=== PATIENT | male | born 1990 | race Hispanic/Latino ===

== ENCOUNTER 2022-05-24 20:38 | Inpatient (IN) | payer OTHER ==
[~2022-05-24] VITALS: Ht 175.3 cm; Wt 76.9 kg
[2022-05-24] MEDS ORDERED: ONDANSETRON 4MG INJ ONE (20:46)
[2022-05-24] MEDS ORDERED: 0.9%NACL 1000ML 1,000 ML IV ONE (20:47)
[2022-05-24 20:53] LABS: BASOPHILS % (AUTO) 0.4 % (0.0-5.0); EOSINOPHILS % (AUTO) 0.1 % (0.0-8.0); HEMATOCRIT 38.9 % (36-48); LYMPHOCYTES % (AUTO) 10.8 % (21.0-51.0); MEAN CORPUSCULAR HEMOGLOBIN 33.7 pg (27.0-33.0); MEAN CORPUSCULAR HGB CONC 37.8 g/dL (32.0-36.0); MEAN CORPUSCULAR VOLUME 89.2 fL (79-99); MONOCYTES % (AUTO) 3.9 % (3.0-13.0); NEUTROPHILS % (AUTO) 84.3 % (40.0-77.0); PLATELET COUNT (AUTO) 218 K/uL (130-400); RED BLOOD CELL COUNT(AUTO) 4.36 MIL/uL (4.00-5.50); RED CELL DISTRIBUTION WIDTH 11.6 % (11.0-15.5); WHITE BLOOD COUNT (AUTO) 17.2 K/uL (4.8-10.8)
[2022-05-24 21:07] LABS: ALBUMIN 3.7 g/dL (3.5-5.0); ALCOHOL, BLOOD < 3 mg/dL (0-10); CHLORIDE 99 mmol/L (101-111); CREATININE 0.9 mg/dL (0.5-1.5); GLOMERULAR FILTR. RATE CALC 78 mL/min (>60); GLUCOSE,RANDOM 327 mg/dL (70-105); POTASSIUM 3.8 mmol/L (3.5-5.1); SODIUM SERUM 137 mmol/L (136-145); UREA NITROGEN, BLOOD 7 mg/dL (7-18)
[2022-05-24 21:16] LABS: LIPASE 1650 U/L (114-286)
[2022-05-24] MEDS ORDERED: PROMETHAZINE HCL 25 MG/ML 1ML AMPULE IM SCH (21:30)
[2022-05-24 21:43] LABS: APPEARANCE,URINE CLEAR (CLEAR); BILIRUBIN,URINE NEGATIVE (NEGATIVE); COLOR,URINE YELLOW (YELLOW); GLUCOSE, URINE (UA) >=1000 mg/dL (NEGATIVE); KETONES,URINE 15 mg/dL (NEGATIVE); LEUKOCYTE ESTERASE ,URINE NEGATIVE (NEGATIVE); NITRATE,URINE NEGATIVE (NEGATIVE); OCCULT BLOOD,URINE TRACE-INTACT (NEGATIVE); PROTEIN,URINE TRACE mg/dL (NEGATIVE); UROBILINOGEN,URINE 0.2 mg/dL (0.2-1.0)
[2022-05-24 21:55] LABS: CARBON DIOXIDE 16 mmol/L (21-32); TOTAL PROTEIN, SERUM 7.8 g/dL (6.0-8.3)
[2022-05-24 21:58] LABS: AMPHET/METH SCREEN,URINE NEGATIVE (NEGATIVE); BARBITURATE SCREEN, URINE NEGATIVE (NEGATIVE); BENZODIAZEPINES SCREEN,URINE POSITIVE (NEGATIVE); CANNABINOID SCREEN,URINE POSITIVE (NEGATIVE); COCAINE SCREEN,URINE NEGATIVE (NEGATIVE); PHENCYCLIDINE SCREEN,URINE NEGATIVE (NEGATIVE)
[2022-05-24 22:04] LABS: BACTERIA,URINE Rare /HPF (None Seen); WBC,URINE 0-1 /HPF (0-1)
[2022-05-24 22:05] LABS: SQUAMOUS EPITHELIAL CELL,UR Rare /HPF (0-2)
[2022-05-24 22:07] LABS: ALANINE AMINOTRANSFERASE 99 U/L (12-78); ASPARTATE AMINOTRANSFERASE 114 U/L (10-37)
[2022-05-24] MEDS ORDERED: 0.9%NACL 1000ML 1,000 ML IV SCH (22:30)
[2022-05-24] MEDS ORDERED: ZOSYN 3.375GM +NS 50ML IV ONE (22:30)
[2022-05-24] MEDS ORDERED: INSULIN HUMULIN R 100 UNIT/ML 3ML SQ ONE (22:30)
[2022-05-24] MEDS ORDERED: CLON2TAB11 PO (22:56)
[2022-05-24] MEDS ORDERED: ROSU20TA31 PO (22:56)
[2022-05-24] MEDS ORDERED: LACTULOSE 20 GM/30 ML UDCUP PO PRN (23:00)
[2022-05-24] MEDS ORDERED: ACETAMINOPHEN 325 MG TAB PO PRN ×2 (23:00)
[2022-05-24] MEDS: LACTATED RINGERS 1000ML 1,000 ML IV SCH (23:40)
[2022-05-25] VITALS (36 sets, daily range): BP systolic 107–155; BP diastolic 66–104
[2022-05-25] LABS: CHOLESTEROL 1305 mg/dL (<200); HDL CHOLESTEROL 124 mg/dL (29-71); LDL DIRECT 128 mg/dL (0-99); TRIGLYCERIDES 4564 mg/dL (30-200)
[2022-05-25] MEDS ORDERED: INSULIN HUMULIN R 100 UNIT/ML 3ML SQ SCH
[2022-05-25] MEDS ORDERED: MORPHINE 2 MG SYG ONE (01:00)
[2022-05-25] MEDS: MORPHINE 2 MG SYG IVP PRN ×2 (01:13→04:45)
[2022-05-25] MEDS: INSULIN REGULAR, HUMAN 3ML 100 UNIT in 0.9%NACL 100ML 99 ML IV PRN ×4 (01:46→21:25)
[2022-05-25 02:19] LABS: BASOPHILS % (AUTO) 0.3 % (0.0-5.0); EOSINOPHILS % (AUTO) 0.1 % (0.0-8.0); HEMATOCRIT 38.2 % (42-54); LYMPHOCYTES % (AUTO) 8.1 % (21.0-51.0); MEAN CORPUSCULAR HEMOGLOBIN 33.3 pg (27.0-33.0); MEAN CORPUSCULAR HGB CONC 37.4 g/dL (32.0-36.0); MEAN CORPUSCULAR VOLUME 88.8 fL (79-99); MONOCYTES % (AUTO) 5.1 % (3.0-13.0); PLATELET COUNT (AUTO) 214 K/uL (130-400); RED CELL DISTRIBUTION WIDTH 11.7 % (11.0-15.5); WHITE BLOOD COUNT (AUTO) 18.4 K/uL (4.8-10.8)
[2022-05-25 02:54] LABS: ALBUMIN 3.5 g/dL (3.5-5.0); CREATININE 0.8 mg/dL (0.5-1.5); MAGNESIUM 1.4 mg/dL (1.80-2.40); POTASSIUM 3.6 mmol/L (3.5-5.1); TOTAL PROTEIN, SERUM 7.2 g/dL (6.0-8.3)
[2022-05-25] MEDS ORDERED: MAGNESIUM 2GM PREMIX 50ML 50 ML IV SCH (04:30)
[2022-05-25] MEDS ORDERED: LORAZEPAM 2 MG/ML 1 ML VIAL IVP PRN (06:00)
[2022-05-25] MEDS ORDERED: PHARMACY COMMUNICATION MISC PRN (06:00)
[2022-05-25] MEDS: ZOSYN 3.375GM+NS 50ML 50 ML IV SCH ×3 (06:25→20:39)
[2022-05-25] MEDS: ONDANSETRON 4MG INJ IV PRN ×5 (06:31→20:38)
[2022-05-25] MEDS ORDERED: HYDROMORPHONE 1 MG INJ IVP PRN (07:30)
[2022-05-25] MEDS ORDERED: HYDROMORPHONE 0.5 MG SYG (0.5MG/0.5ML) IVP PRN (07:30)
[2022-05-25] MEDS: THIAMINE HCL 100 MG/ML 2ML VIAL IM SCH (08:32)
[2022-05-25] MEDS: FOLIC ACID 1 MG TABLET PO SCH (08:32)
[2022-05-25] MEDS: MULTIVITAMIN TABLET PO SCH (08:32)
[2022-05-25] MEDS: FAMOTIDINE 20MG VIAL IV SCH ×2 (08:32→20:38)
[2022-05-25] MEDS: ENOXAPARIN SODIUM 40 MG/0.4 ML SYRINGE SQ SCH (08:33)
[2022-05-25] MEDS: HYDROMORPHONE 0.5 MG SYG (0.5MG/0.5ML) IVP PRN ×3 (08:33→15:43)
[2022-05-25] MEDS: LACTATED RINGERS 1000ML 1,000 ML IV SCH (08:49)
[2022-05-25] MEDS ORDERED: DEXTROSE 5 %-0.45 % NACL 1,000 ML IV SCH (11:30)
[2022-05-25] MEDS: 0.9%NACL 1000ML 1,000 ML IV SCH (11:44)
[2022-05-25] MEDS: DEXTROSE 10%-WATER 1,000 ML IV SCH (11:55)
[2022-05-25] MEDS: CHLORDIAZEPOXIDE HCL 25 MG CAP PO PRN ×2 (14:05→17:20)
[2022-05-25] MEDS ORDERED: 0.9%NACL 1000ML 1,000 ML IV SCH ×2 (17:50→19:00)
[2022-05-25] MEDS: FENOFIBRATE NANOCRYSTALLIZED 145 MG TAB PO SCH (20:39)
[2022-05-25] MEDS: DIAZEPAM 5 MG/ML 2 ML SYG IVP PRN (20:40)
[2022-05-26] VITALS (40 sets, daily range): BP systolic 106–153; BP diastolic 54–108
[2022-05-26] MEDS: HYDROMORPHONE 0.5 MG SYG (0.5MG/0.5ML) IVP PRN ×2 (01:23→16:07)
[2022-05-26] MEDS: ZOSYN 3.375GM+NS 50ML 50 ML IV SCH ×3 (05:00→20:23)
[2022-05-26] MEDS: DEXTROSE 10%-WATER 1,000 ML IV SCH ×4 (05:00→23:28)
[2022-05-26 05:27] LABS: BASOPHILS % (AUTO) 0.6 % (0.0-5.0); EOSINOPHILS % (AUTO) 0.7 % (0.0-8.0); HEMATOCRIT 42.2 % (42-54); LYMPHOCYTES % (AUTO) 24.2 % (21.0-51.0); MEAN CORPUSCULAR HEMOGLOBIN 31.9 pg (27.0-33.0); MEAN CORPUSCULAR HGB CONC 35.3 g/dL (32.0-36.0); MEAN CORPUSCULAR VOLUME 90.4 fL (79-99); MONOCYTES % (AUTO) 5.3 % (3.0-13.0); NEUTROPHILS % (AUTO) 68.8 % (40.0-77.0); PLATELET COUNT (AUTO) 162 K/uL (130-400); RED BLOOD CELL COUNT(AUTO) 4.67 MIL/uL (4.50-6.20); RED CELL DISTRIBUTION WIDTH 12.4 % (11.0-15.5); WHITE BLOOD COUNT (AUTO) 9.6 K/uL (4.8-10.8)
[2022-05-26 05:43] LABS: HEMOGLOBIN A1C 9.3 % (4.0-6.0)
[2022-05-26 05:57] LABS: ALBUMIN 2.4 g/dL (3.5-5.0); CREATININE 0.9 mg/dL (0.5-1.5); POTASSIUM 3.2 mmol/L (3.5-5.1); TOTAL PROTEIN, SERUM 6.1 g/dL (6.0-8.3)
[2022-05-26] MEDS ORDERED: ALPR1TAB7 PO (07:48)
[2022-05-26] MEDS: THIAMINE HCL 100 MG/ML 2ML VIAL IM SCH (08:47)
[2022-05-26] MEDS: ENOXAPARIN SODIUM 40 MG/0.4 ML SYRINGE SQ SCH (08:47)
[2022-05-26] MEDS: FOLIC ACID 1 MG TABLET PO SCH (08:47)
[2022-05-26] MEDS: FAMOTIDINE 20MG VIAL IV SCH ×2 (08:47→20:23)
[2022-05-26] MEDS: ONDANSETRON 4MG INJ IV PRN ×2 (08:47→20:23)
[2022-05-26] MEDS: 0.9%NACL 1000ML 1,000 ML IV SCH (08:47)
[2022-05-26] MEDS: MULTIVITAMIN TABLET PO SCH (08:47)
[2022-05-26] MEDS: POTASSIUM CHLORIDE 20MEQ/100ML 100 ML IV PRN ×2 (10:00→17:46)
[2022-05-26] MEDS: LIDOCAINE HCL-MPF 1% 2ML VIAL IV PRN ×2 (10:00→17:46)
[2022-05-26] MEDS: DIAZEPAM 5 MG/ML 2 ML SYG IVP PRN ×2 (12:00→20:23)
[2022-05-26] MEDS: INSULIN REGULAR, HUMAN 3ML 100 UNIT in 0.9%NACL 100ML 99 ML IV PRN ×2 (12:08)
[2022-05-26] MEDS: FENOFIBRATE NANOCRYSTALLIZED 145 MG TAB PO SCH (20:24)
[2022-05-27] VITALS (22 sets, daily range): BP systolic 104–148; BP diastolic 59–99
[2022-05-27] MEDS: ONDANSETRON 4MG INJ IV PRN ×2 (02:25→22:38)
[2022-05-27] MEDS: HYDROMORPHONE 0.5 MG SYG (0.5MG/0.5ML) IVP PRN ×2 (02:28→03:40)
[2022-05-27] MEDS: INSULIN REGULAR, HUMAN 3ML 100 UNIT in 0.9%NACL 100ML 99 ML IV PRN ×2 (03:26)
[2022-05-27] MEDS: 0.9%NACL 1000ML 1,000 ML IV SCH ×2 (04:06→23:05)
[2022-05-27] MEDS: ZOSYN 3.375GM+NS 50ML 50 ML IV SCH ×3 (04:06→21:59)
[2022-05-27] MEDS: DEXTROSE 10%-WATER 1,000 ML IV SCH (04:10)
[2022-05-27] MEDS: MULTIVITAMIN TABLET PO SCH (08:39)
[2022-05-27] MEDS: FAMOTIDINE 20MG VIAL IV SCH ×2 (08:39→21:58)
[2022-05-27] MEDS: THIAMINE HCL 100 MG/ML 2ML VIAL IM SCH (08:39)
[2022-05-27] MEDS: FOLIC ACID 1 MG TABLET PO SCH (08:39)
[2022-05-27] MEDS: ENOXAPARIN SODIUM 40 MG/0.4 ML SYRINGE SQ SCH (08:41)
[2022-05-27 10:52] LABS: BASOPHILS % (AUTO) 0.3 % (0.0-5.0); EOSINOPHILS % (AUTO) 2.6 % (0.0-8.0); HEMATOCRIT 34.2 % (42-54); LYMPHOCYTES % (AUTO) 28.8 % (21.0-51.0); MEAN CORPUSCULAR HGB CONC 35.7 g/dL (32.0-36.0); MEAN CORPUSCULAR VOLUME 89.8 fL (79-99); MONOCYTES % (AUTO) 5.1 % (3.0-13.0); NEUTROPHILS % (AUTO) 62.8 % (40.0-77.0); PLATELET COUNT (AUTO) 159 K/uL (130-400); RED BLOOD CELL COUNT(AUTO) 3.81 MIL/uL (4.50-6.20); RED CELL DISTRIBUTION WIDTH 12.1 % (11.0-15.5); WHITE BLOOD COUNT (AUTO) 9.7 K/uL (4.8-10.8)
[2022-05-27 11:18] LABS: CREATININE 0.7 mg/dL (0.5-1.5); POTASSIUM 3.2 mmol/L (3.5-5.1)
[2022-05-27] MEDS: INSULIN HUMULIN R 100 UNIT/ML 3ML SQ SCH ×3 (11:30→22:06)
[2022-05-27] MEDS: ALPRAZOLAM 1 MG TAB PO PRN (12:20)
[2022-05-27] MEDS: POTASSIUM CHLORIDE 20MEQ/100ML 100 ML IV PRN (13:33)
[2022-05-27] MEDS ORDERED: POTASSIUM CHLORIDE 10% ELIXIR 20 MEQ/15 ML UDCUP PO PRN (18:00)
[2022-05-27] MEDS: FENOFIBRATE NANOCRYSTALLIZED 145 MG TAB PO SCH (21:58)
[2022-05-27] MEDS: CLONAZEPAM 1MG TAB PO SCH (21:58)
[2022-05-28] MEDS: CHLORDIAZEPOXIDE HCL 25 MG CAP PO PRN ×2 (02:55→05:20)
[2022-05-28] MEDS: ALPRAZOLAM 1 MG TAB PO PRN (02:55)
[2022-05-28 03:38] VITALS: BP 126/88
[2022-05-28] MEDS: ZOSYN 3.375GM+NS 50ML 50 ML IV SCH (05:17)
[2022-05-28] MEDS: KCL 20 MEQ ERTAB PO PRN ×2 (06:51→09:29)
[2022-05-28] MEDS: INSULIN HUMULIN R 100 UNIT/ML 3ML SQ SCH ×2 (06:51→13:18)
[2022-05-28 07:28] VITALS: BP 137/89
[2022-05-28] MEDS: ENOXAPARIN SODIUM 40 MG/0.4 ML SYRINGE SQ SCH (09:29)
[2022-05-28] MEDS: CLONAZEPAM 1MG TAB PO SCH (09:32)
[2022-05-28] MEDS: MULTIVITAMIN TABLET PO SCH (09:32)
[2022-05-28] MEDS: FAMOTIDINE 20MG VIAL IV SCH (09:32)
[2022-05-28 12:24] VITALS: BP 150/104
[2022-05-28] MEDS ORDERED: GLIM4TAB36 PO (12:57)
[2022-05-28] MEDS ORDERED: OMEG-148 PO (12:57)
[2022-05-28] MEDS ORDERED: METF-444 PO (12:57)
[2022-05-28] MEDS ORDERED: ROSU20TA31 PO (12:57)
[2022-05-28] MEDS ORDERED: FENO145T PO (12:57)
[2022-05-28 14:10] VITALS: BP 134/94
== END 2022-05-28 14:30 | disposition home or self-care (01) | DRG 440 ==
LOC: EDH 20:38 → EDSEX 20:38 → EDHIP 22:54 → 4AH 05-25 01:19 → EDHIP 05-25 01:25 → 2CH 05-25 05:14 → 3CH 05-27 13:54
PROVIDERS: ADMIT Internal Medicine; ATTEND Internal Medicine
DX: K85.90 Acute pancreatitis without necrosis or infection, unspecified (principal); E11.65 Type 2 diabetes mellitus with hyperglycemia; E78.1 Pure hyperglyceridemia; E78.5 Hyperlipidemia, unspecified; E83.51 Hypocalcemia; F10.20 Alcohol dependence, uncomplicated; F17.200 Nicotine dependence, unspecified, uncomplicated; F41.9 Anxiety disorder, unspecified; I10 Essential (primary) hypertension; K59.00 Constipation, unspecified; Z79.899 Other long term (current) drug therapy; Z91.14 Patient's other noncompliance with medication regimen; Z91.19 Patient's noncompliance with other medical treatment and regimen
CPT/HCPCS: 36415; 74176; 80048; 80053; 80061; 80305; 81001; 82150; 82948; 83036; 83690; 83735; 84478; 85025; 86140; G0378; J1170; J1650; J1815; J2405; J2543; J3360; J3411; J3475; J3480; J3490; J7030

== ENCOUNTER 2022-12-04 14:52 | Emergency (ER) | payer MEDICAID ==
[~2022-12-04] VITALS: Ht 172.7 cm; Wt 86.2 kg
[~2022-12-04 14:52] MED LIST: FENO145T PO; GLIM4TAB36 PO; HYDR-3421 PO; ICOS1CAP2 PO; METF-444 PO; MIRT-120 PO; OMEG-148 PO; PARO-149 PO; ROSU20TA31 PO; TRAZ-253 PO
[2022-12-04 15:50] LABS: BASOPHILS % (AUTO) 0.6 % (0.0-5.0); EOSINOPHILS % (AUTO) 0.2 % (0.0-8.0); HEMATOCRIT 41.4 % (42-54); LYMPHOCYTES % (AUTO) 22.4 % (21.0-51.0); MEAN CORPUSCULAR HEMOGLOBIN 30.6 pg (27.0-33.0); MEAN CORPUSCULAR HGB CONC 34.8 g/dL (32.0-36.0); MEAN CORPUSCULAR VOLUME 87.9 fL (79-99); NEUTROPHILS % (AUTO) 68.6 % (40.0-77.0); PLATELET COUNT (AUTO) 239 K/uL (130-400); RED BLOOD CELL COUNT(AUTO) 4.71 MIL/uL (4.50-6.20); RED CELL DISTRIBUTION WIDTH 12.3 % (11.0-15.5); WHITE BLOOD COUNT (AUTO) 12.7 K/uL (4.8-10.8)
[2022-12-04 16:04] LABS: ALBUMIN 4.7 g/dL (3.5-5.0); CREATININE 1.2 mg/dL (0.5-1.5); TOTAL PROTEIN, SERUM 8.8 g/dL (6.0-8.3)
[2022-12-04] MEDS ORDERED: KETOROLAC 15MG/ML VIAL (15MG/ML) ONE (16:47)
[2022-12-04] MEDS ORDERED: ONDANSETRON 4MG INJ ONE (16:48)
[2022-12-04] MEDS ORDERED: ONDANSETRON 4MG INJ IVP ONE (17:00)
[2022-12-04] MEDS ORDERED: 0.9%NACL 1000ML 1,000 ML IV ONE (17:00)
[2022-12-04] MEDS ORDERED: KETOROLAC 15MG/ML VIAL (15MG/ML) IV ONE (17:00)
[2022-12-04] MEDS ORDERED: KCL 20 MEQ ERTAB PO ONE ×2 (17:00→17:10)
[2022-12-04 18:12] VITALS: BP 132/93
[2022-12-04 18:17] LABS: CHOLESTEROL 299 mg/dL (<200); HDL CHOLESTEROL 51 mg/dL (29-71); LDL DIRECT 173 mg/dL (0-99); LIPASE 98 U/L (114-286); TRIGLYCERIDES 458 mg/dL (30-200)
[2022-12-04 18:41] LABS: APPEARANCE,URINE CLOUDY (CLEAR); BILIRUBIN,URINE NEGATIVE (NEGATIVE); COLOR,URINE YELLOW (YELLOW); GLUCOSE, URINE (UA) >=1000 mg/dL (NEGATIVE); KETONES,URINE 5 mg/dL (NEGATIVE); LEUKOCYTE ESTERASE ,URINE NEGATIVE Leu/uL (NEGATIVE); NITRATE,URINE NEGATIVE (NEGATIVE); OCCULT BLOOD,URINE NEGATIVE (NEGATIVE); PH,URINE 6.5 (5.0-8.0); PROTEIN,URINE 70 mg/dL (NEGATIVE); UROBILINOGEN,URINE 3 mg/dL (0.2-1.0)
[2022-12-04] MEDS ORDERED: LORAZEPAM 2 MG/ML 1 ML VIAL ONE (18:42)
[2022-12-04 18:48] LABS: MUCUS,URINE FEW LPF (None Seen); OTHER CASTS, URINE 1 /LPF (None Seen); SQUAMOUS EPITHELIAL CELL,UR RARE /HPF (0-2); YEAST,URINE BUDDING MOD /HPF (None Seen)
[2022-12-04] MEDS ORDERED: LORAZEPAM 2 MG/ML 1 ML VIAL IVP ONE (19:00)
[2022-12-04] MEDS ORDERED: ACET-2079 PO (19:00)
== END 2022-12-04 19:10 | disposition home or self-care (01) ==
LOC: EDH 14:52
DX: R10.9 Unspecified abdominal pain (principal); F10.10 Alcohol abuse, uncomplicated; E11.9 Type 2 diabetes mellitus without complications; R11.0 Nausea; F41.9 Anxiety disorder, unspecified; Z79.899 Other long term (current) drug therapy; Z79.84 Long term (current) use of oral hypoglycemic drugs
CPT/HCPCS: 99284; 96374; 96375; 96361; 80061; 80053; 83690; 85025; 81001; 36415; J7030; J2405; J2060; J1885

== ENCOUNTER 2023-02-11 18:06 | Emergency (ER) | payer MEDICAID ==
[~2023-02-11] VITALS: Ht 167.6 cm; Wt 79.4 kg
[~2023-02-11 18:06] MED LIST changes: +ACET-2079 PO
[2023-02-11 19:48] LABS: BASOPHILS % (AUTO) 0.4 % (0.0-5.0); EOSINOPHILS % (AUTO) 0.1 % (0.0-8.0); HEMATOCRIT 40.1 % (42-54); LYMPHOCYTES % (AUTO) 8.5 % (21.0-51.0); MEAN CORPUSCULAR HEMOGLOBIN 31.6 pg (27.0-33.0); MEAN CORPUSCULAR HGB CONC 35.7 g/dL (32.0-36.0); MEAN CORPUSCULAR VOLUME 88.7 fL (79-99); MONOCYTES % (AUTO) 6.1 % (3.0-13.0); NEUTROPHILS % (AUTO) 84.4 % (40.0-77.0); PLATELET COUNT (AUTO) 204 K/uL (130-400); RED BLOOD CELL COUNT(AUTO) 4.52 MIL/uL (4.50-6.20); RED CELL DISTRIBUTION WIDTH 12.1 % (11.0-15.5)
[2023-02-11 20:00] LABS: CREATININE 1.9 mg/dL (0.5-1.5); POTASSIUM 3.2 mmol/L (3.5-5.1)
[2023-02-11] MEDS ORDERED: HALOPERIDOL INJ 5 MG/ML VIAL IV SCH (20:00)
[2023-02-11] MEDS ORDERED: 0.9%NACL 1000ML 1,000 ML IV ONE (20:00)
[2023-02-11 20:05] LABS: ALBUMIN 4.2 g/dL (3.5-5.0); TOTAL PROTEIN, SERUM 8.5 g/dL (6.0-8.3)
[2023-02-11] MEDS ORDERED: 0.9%NACL 1000ML 2,500 ML IV ONE (20:30)
[2023-02-11 20:53] VITALS: BP 132/92
[2023-02-11 21:09] LABS: TRIGLYCERIDES 1276 mg/dL (30-200)
[2023-02-11 21:19] LABS: APPEARANCE,URINE CLEAR (CLEAR); BILIRUBIN,URINE NEGATIVE (NEGATIVE); COLOR,URINE LIGHT-YELLOW (YELLOW); GLUCOSE, URINE (UA) >=1000 mg/dL (NEGATIVE); KETONES,URINE 20 mg/dL (NEGATIVE); LEUKOCYTE ESTERASE ,URINE NEGATIVE Leu/uL (NEGATIVE); NITRATE,URINE NEGATIVE (NEGATIVE); OCCULT BLOOD,URINE MODERATE (NEGATIVE); PROTEIN,URINE 300 mg/dL (NEGATIVE); UROBILINOGEN,URINE 0.2 mg/dL (0.2-1.0)
[2023-02-11 21:21] LABS: BACTERIA,URINE FEW /HPF (None Seen); MUCUS,URINE RARE LPF (None Seen); OTHER CASTS, URINE 3 /LPF (None Seen); SQUAMOUS EPITHELIAL CELL,UR RARE /HPF (0-2); YEAST,URINE BUDDING FEW /HPF (None Seen)
[2023-02-11 21:25] LABS: AMPHET/METH SCREEN,URINE NEGATIVE (NEGATIVE); BARBITURATE SCREEN, URINE NEGATIVE (NEGATIVE); BENZODIAZEPINES SCREEN,URINE POSITIVE (NEGATIVE); CANNABINOID SCREEN,URINE POSITIVE (NEGATIVE); COCAINE SCREEN,URINE NEGATIVE (NEGATIVE); OPIATE SCREEN,URINE NEGATIVE (NEGATIVE); PHENCYCLIDINE SCREEN,URINE NEGATIVE (NEGATIVE)
== END 2023-02-11 22:10 | disposition home or self-care (01) ==
LOC: EDH 18:06
DX: K85.90 Acute pancreatitis without necrosis or infection, unspecified (principal); Z79.84 Long term (current) use of oral hypoglycemic drugs; Z79.899 Other long term (current) drug therapy; Z98.890 Other specified postprocedural states
CPT/HCPCS: 99285; 74176; 96374; 96361; 84478; 80053; 80305; 83690; 85025; 36415; 81001; J7030; J1630

== ENCOUNTER 2023-04-21 19:04 | Inpatient (IN) | payer MEDICAID ==
[~2023-04-21] VITALS: Ht 175.3 cm; Wt 89.4 kg
[~2023-04-21 19:04] MED LIST changes: -ROSU20TA31 PO; +ROSU20TA73 PO
[2023-04-21] MEDS ORDERED: 0.9%NACL 1000ML 1,000 ML IV SCH (19:30)
[2023-04-21] MEDS ORDERED: ONDANSETRON 4MG INJ IVP ONE (19:30)
[2023-04-21] MEDS ORDERED: DICYCLOMINE 20MG (10MG/ML) AMP IM STA (19:32)
[2023-04-21 20:00] LABS: BASOPHILS % (AUTO) 0.2 % (0.0-5.0); HEMATOCRIT 42.5 % (42-54); LYMPHOCYTES % (AUTO) 11.2 % (21.0-51.0); MEAN CORPUSCULAR HGB CONC 36.2 g/dL (32.0-36.0); MEAN CORPUSCULAR VOLUME 88.4 fL (79-99); MONOCYTES % (AUTO) 4.1 % (3.0-13.0); NEUTROPHILS % (AUTO) 84.2 % (40.0-77.0); PLATELET COUNT (AUTO) 216 K/uL (130-400); RED BLOOD CELL COUNT(AUTO) 4.81 MIL/uL (4.50-6.20); RED CELL DISTRIBUTION WIDTH 11.6 % (11.0-15.5); WHITE BLOOD COUNT (AUTO) 17.3 K/uL (4.8-10.8)
[2023-04-21 20:16] LABS: CARBON DIOXIDE 19 mmol/L (21-32); CHLORIDE 96 mmol/L (101-111); CREATININE 1.1 mg/dL (0.5-1.5); GLOMERULAR FILTR. RATE CALC 93 mL/min (>90); GLUCOSE,RANDOM 324 mg/dL (70-105); POTASSIUM 3.6 mmol/L (3.5-5.1); SODIUM SERUM 138 mmol/L (136-145); UREA NITROGEN, BLOOD 10 mg/dL (7-18)
[2023-04-21] MEDS: HALOPERIDOL INJ 5 MG/ML VIAL IM SCH (20:20)
[2023-04-21 20:37] LABS: B-TYPE NATRIURETIC PEPTIDE < 5 pg/mL (0-100)
[2023-04-21 20:46] LABS: ALBUMIN 3.7 g/dL (3.5-5.0); CREATINE KINASE, TOTAL 62 U/L (21-232); MYOGLOBIN 13 ng/mL (10-92); TOTAL PROTEIN, SERUM 7.7 g/dL (6.0-8.3)
[2023-04-21 21:13] LABS: APPEARANCE,URINE CLEAR (CLEAR); BILIRUBIN,URINE NEGATIVE (NEGATIVE); COLOR,URINE LIGHT-YELLOW (YELLOW); GLUCOSE, URINE (UA) >=1000 mg/dL (NEGATIVE); KETONES,URINE 20 mg/dL (NEGATIVE); LEUKOCYTE ESTERASE ,URINE NEGATIVE Leu/uL (NEGATIVE); NITRATE,URINE NEGATIVE (NEGATIVE); OCCULT BLOOD,URINE NEGATIVE (NEGATIVE); PROTEIN,URINE 20 mg/dL (NEGATIVE); UROBILINOGEN,URINE 0.2 mg/dL (0.2-1.0)
[2023-04-21 21:16] LABS: RBC,URINE 0-1 /HPF (0-1); SQUAMOUS EPITHELIAL CELL,UR RARE /HPF (0-2); WBC,URINE 0-1 /HPF (0-1)
[2023-04-21 21:27] LABS: ALANINE AMINOTRANSFERASE 205 U/L (12-78); ASPARTATE AMINOTRANSFERASE 201 U/L (10-37)
[2023-04-21] MEDS ORDERED: IOHEXOL-350 75 ML VIAL IV ONE (21:56)
[2023-04-21] MEDS ORDERED: MAG-55 PO (22:28)
[2023-04-21] MEDS ORDERED: FAMO-136 PO (22:28)
[2023-04-21] MEDS ORDERED: HYDROMORPHONE 1 MG INJ ONE (23:05)
[2023-04-21] MEDS ORDERED: HYDROMORPHONE 1 MG INJ IVP ONE (23:30)
[2023-04-21] MEDS ORDERED: INSULIN REGULAR, HUMAN 3ML 100 UNIT in 0.9%NACL 100ML 99 ML IV SCH ×2 (23:45)
[2023-04-22] VITALS (24 sets, daily range): BP systolic 94–143; BP diastolic 51–98; PULSE 113–165; RESP 13–86; O2SAT 95–96
[2023-04-22] MEDS ORDERED: LACTATED RINGERS 1000ML 1,000 ML IV SCH
[2023-04-22] MEDS ORDERED: D5W-1/2 NS/20MEQ KCL 1,000 ML IV SCH
[2023-04-22] MEDS ORDERED: ACETAMINOPHEN 325 MG TAB PO PRN ×2
[2023-04-22] MEDS ORDERED: INSULIN HUMULIN R 100 UNIT/ML 3ML ONE (00:02)
[2023-04-22 00:11] LABS: CREATININE 0.9 mg/dL (0.5-1.5)
[2023-04-22] MEDS: MAGNESIUM 2GM PREMIX 50ML 50 ML IV SCH (00:19)
[2023-04-22] MEDS: POTASSIUM CHLORIDE 10MEQ/100ML 100 ML IV PRN ×5 (00:20→21:57)
[2023-04-22] MEDS ORDERED: PHARMACY COMMUNICATION MISC PRN (00:30)
[2023-04-22] MEDS: MORPHINE 4 MG SYG IV PRN ×3 (02:01→21:56)
[2023-04-22] MEDS: ONDANSETRON 4MG INJ IV PRN ×3 (02:01→17:03)
[2023-04-22] MEDS ORDERED: [UNRECOGNIZED DRUG - OTHER] IV SCH ×2 (02:30)
[2023-04-22] MEDS ORDERED: HUMAN IV SCH ×2 (02:30)
[2023-04-22] MEDS ORDERED: INSULIN REGULAR IV SCH ×2 (02:30)
[2023-04-22] MEDS ORDERED: PHARMACY COMMUNICATION MISC SCH ×2 (03:00)
[2023-04-22] MEDS: LORAZEPAM 2 MG/ML 1 ML VIAL IVP PRN ×3 (03:10→19:42)
[2023-04-22 05:26] LABS: BASOPHILS % (AUTO) 0.4 % (0.0-5.0); EOSINOPHILS % (AUTO) 0.1 % (0.0-8.0); HEMATOCRIT 50.5 % (42-54); LYMPHOCYTES % (AUTO) 13.9 % (21.0-51.0); MEAN CORPUSCULAR HEMOGLOBIN 32.3 pg (27.0-33.0); MEAN CORPUSCULAR HGB CONC 35.8 g/dL (32.0-36.0); MONOCYTES % (AUTO) 4.5 % (3.0-13.0); NEUTROPHILS % (AUTO) 80.8 % (40.0-77.0); PLATELET COUNT (AUTO) 251 K/uL (130-400); RED BLOOD CELL COUNT(AUTO) 5.61 MIL/uL (4.50-6.20); RED CELL DISTRIBUTION WIDTH 11.7 % (11.0-15.5); WHITE BLOOD COUNT (AUTO) 11.7 K/uL (4.8-10.8)
[2023-04-22 05:45] LABS: MAGNESIUM 1.3 mg/dL (1.80-2.40); POTASSIUM 3.6 mmol/L (3.5-5.1)
[2023-04-22 06:08] LABS: HEMOGLOBIN A1C 10.6 % (4.0-6.0)
[2023-04-22 06:41] LABS: ABG BASE EXCESS -3.1 mmol/L (-2.0-3.0); ABG HCO3 18.5 mmol/L (21.0-28.0); ABG OXYGEN SATURATION 97.1 % (95.0-99.0); ABG PCO2 25 mmHg (35-48)
[2023-04-22] MEDS: LACTATED RINGERS 1000ML 1,000 ML IV SCH ×3 (07:12→10:25)
[2023-04-22] MEDS: SODIUM BICARB 8.4% 50ML SYRING 150 MEQ in DEXTROSE 5%-WATER 1,000 ML IVP SCH ×2 (08:09→13:05)
[2023-04-22] MEDS: FAMOTIDINE 20MG VIAL IV SCH ×2 (08:39→19:42)
[2023-04-22] MEDS: ENOXAPARIN SODIUM 40 MG/0.4 ML SYRINGE SQ SCH (08:41)
[2023-04-22 09:08] LABS: CREATININE 1.1 mg/dL (0.5-1.5); POTASSIUM 3.2 mmol/L (3.5-5.1)
[2023-04-22 09:32] LABS: MAGNESIUM 1.9 mg/dL (1.80-2.40); PHOSPHORUS 0.7 mg/dL (2.5-4.9)
[2023-04-22] MEDS ORDERED: POTASSIUM PHOS 15 mMOL+NS250ML 250 ML IV PRN (10:00)
[2023-04-22] MEDS: INSULIN REGULAR, HUMAN 3ML 100 UNIT in 0.9%NACL 100ML 99 ML IV SCH ×4 (10:17→22:44)
[2023-04-22] MEDS: CEFTRIAXONE 2GM VIAL IVPB SCH (10:19)
[2023-04-22] MEDS ORDERED: LACTATED RINGERS 1000ML IV ONE (12:30)
[2023-04-22 12:35] LABS: INR 1.03 (0.85-1.15); PROTHROMBIN TIME 11.9 SEC (9.6-11.6)
[2023-04-22 12:36] LABS: PARTIAL THROMBOPLASTIN TIME 35.9 SEC (26.3-35.5)
[2023-04-22 13:03] LABS: POTASSIUM 3.1 mmol/L (3.5-5.1)
[2023-04-22] MEDS: MORPHINE 2 MG SYG IV PRN ×2 (13:54→17:07)
[2023-04-22] MEDS ORDERED: LACTATED RINGERS 1000ML IV SCH (15:41)
[2023-04-22 15:53] LABS: CREATININE 0.9 mg/dL (0.5-1.5)
[2023-04-22 16:01] LABS: POTASSIUM 2.9 mmol/L (3.5-5.1)
[2023-04-22] MEDS: DEXTROSE 5 %-0.45 % NACL 1,000 ML IV SCH ×3 (16:04→23:56)
[2023-04-22] MEDS ORDERED: MIRT-22 PO (19:17)
[2023-04-22] MEDS ORDERED: DIAZ10TA4 PO (19:17)
[2023-04-22] MEDS: THIAMINE HCL 100 MG, FOLIC ACID 1 MG, M.V.I. IV [ADULT] 10 ML in 0.9%NACL 1000ML 1,000 ML IV SCH (19:58)
[2023-04-22] MEDS: HALOPERIDOL INJ 5 MG/ML VIAL IM SCH (19:59)
[2023-04-22] MEDS: FENOFIBRATE NANOCRYSTALLIZED 145 MG TAB PO SCH (20:00)
[2023-04-22] MEDS: FISH OIL 1000 MG/CAP PO SCH (20:04)
[2023-04-22 20:40] LABS: CREATININE 0.8 mg/dL (0.5-1.5); POTASSIUM 3.1 mmol/L (3.5-5.1)
[2023-04-22] MEDS ORDERED: NON-FORMULARY MEDICATION 1 EACH (Omega-3S/Dha/Epa/Fish Oil (Fish Oil 1,000 mg Softgel) 1 E PO SCH (21:00)
[2023-04-22] MEDS ORDERED: KCL 20 MEQ ERTAB PO ONE (21:42)
[2023-04-22] MEDS ORDERED: POTASSIUM CHLORIDE 10% ELIXIR 20 MEQ/15 ML UDCUP PO PRN (23:00)
[2023-04-22 23:58] LABS: CREATININE 0.8 mg/dL (0.5-1.5); POTASSIUM 3.1 mmol/L (3.5-5.1)
[2023-04-23] VITALS (27 sets, daily range): BP systolic 107–155; BP diastolic 49–110; PULSE 55–130; RESP 13–38; O2SAT 95–98
[2023-04-23] MEDS: LORAZEPAM 2 MG/ML 1 ML VIAL IVP PRN ×2 (00:50→08:28)
[2023-04-23] MEDS: POTASSIUM CHLORIDE 10MEQ/100ML 100 ML IV PRN (01:02)
[2023-04-23] MEDS: DEXTROSE 5 %-0.45 % NACL 1,000 ML IV SCH ×4 (03:34→12:24)
[2023-04-23 03:56] LABS: BASOPHILS % (AUTO) 0.2 % (0.0-5.0); HEMATOCRIT 36.4 % (42-54); LYMPHOCYTES % (AUTO) 30.1 % (21.0-51.0); MEAN CORPUSCULAR HEMOGLOBIN 31.5 pg (27.0-33.0); MEAN CORPUSCULAR HGB CONC 34.3 g/dL (32.0-36.0); MEAN CORPUSCULAR VOLUME 91.7 fL (79-99); NEUTROPHILS % (AUTO) 64.3 % (40.0-77.0); PLATELET COUNT (AUTO) 144 K/uL (130-400); RED BLOOD CELL COUNT(AUTO) 3.97 MIL/uL (4.50-6.20); WHITE BLOOD COUNT (AUTO) 8.2 K/uL (4.8-10.8)
[2023-04-23 04:09] LABS: INR 0.98 (0.85-1.15); PROTHROMBIN TIME 11.4 SEC (9.6-11.6)
[2023-04-23 04:11] LABS: PARTIAL THROMBOPLASTIN TIME 35.3 SEC (26.3-35.5)
[2023-04-23 04:18] LABS: ALBUMIN 2.3 g/dL (3.5-5.0); BILIRUBIN,DIRECT 0.5 mg/dL (0.0-0.3); CREATININE 0.7 mg/dL (0.5-1.5); MAGNESIUM 1.6 mg/dL (1.80-2.40); POTASSIUM 3.3 mmol/L (3.5-5.1); TOTAL PROTEIN, SERUM 5.3 g/dL (6.0-8.3)
[2023-04-23] MEDS: MORPHINE 4 MG SYG IV PRN (04:53)
[2023-04-23] MEDS: ONDANSETRON 4MG INJ IV PRN (04:53)
[2023-04-23] MEDS: MAGNESIUM 2GM PREMIX 50ML 50 ML IV SCH (05:36)
[2023-04-23] MEDS: KCL 20 MEQ ERTAB PO PRN ×4 (05:43→12:08)
[2023-04-23] MEDS: ENOXAPARIN SODIUM 40 MG/0.4 ML SYRINGE SQ SCH (08:24)
[2023-04-23] MEDS: FISH OIL 1000 MG/CAP PO SCH ×3 (08:24→19:45)
[2023-04-23] MEDS: PAROXETINE HCL 20 MG TABLET PO SCH (08:24)
[2023-04-23] MEDS: FAMOTIDINE 20MG VIAL IV SCH ×2 (08:25→19:45)
[2023-04-23 09:15] LABS: CREATININE 0.8 mg/dL (0.5-1.5); POTASSIUM 3.1 mmol/L (3.5-5.1)
[2023-04-23] MEDS: CEFTRIAXONE 2GM VIAL IVPB SCH (09:18)
[2023-04-23] MEDS: MORPHINE 2 MG SYG IV PRN ×3 (10:00→21:27)
[2023-04-23] MEDS ORDERED: PROMETHAZINE HCL 25 MG/ML 1ML AMPULE IM PRN (10:30)
[2023-04-23] MEDS: THIAMINE HCL 100 MG, FOLIC ACID 1 MG, M.V.I. IV [ADULT] 10 ML in 0.9%NACL 1000ML 1,000 ML IV SCH (12:01)
[2023-04-23 13:20] LABS: CREATININE 0.8 mg/dL (0.5-1.5); POTASSIUM 3.5 mmol/L (3.5-5.1)
[2023-04-23] MEDS: LACTATED RINGERS 1000ML 1,000 ML IV SCH (15:38)
[2023-04-23] MEDS: INSULIN GLARGINE 100 UNITS/ML 10 ML VIAL SQ SCH ×2 (15:40→19:52)
[2023-04-23] MEDS: INSULIN HUMULIN R 100 UNIT/ML 3ML SQ SCH ×2 (15:44→21:28)
[2023-04-23] MEDS: ALPRAZOLAM 0.5 MG TABLET PO PRN (19:45)
[2023-04-23] MEDS: FENOFIBRATE NANOCRYSTALLIZED 145 MG TAB PO SCH (19:45)
[2023-04-23] MEDS ORDERED: MAGNESIUM 2GM PREMIX 50ML 50 ML IV PRN (20:00)
[2023-04-24] MEDS: LACTATED RINGERS 1000ML 1,000 ML IV SCH (01:20)
[2023-04-24 03:59] VITALS: BP 134/71; PULSE 105; RESP 18
[2023-04-24 04:17] LABS: HEMATOCRIT 29.7 % (42-54); MEAN CORPUSCULAR HEMOGLOBIN 31.8 pg (27.0-33.0); MEAN CORPUSCULAR HGB CONC 33.7 g/dL (32.0-36.0); MEAN CORPUSCULAR VOLUME 94.6 fL (79-99); RED BLOOD CELL COUNT(AUTO) 3.14 MIL/uL (4.50-6.20); RED CELL DISTRIBUTION WIDTH 12.2 % (11.0-15.5); WHITE BLOOD COUNT (AUTO) 7.9 K/uL (4.8-10.8)
[2023-04-24 04:55] LABS: ALBUMIN 2.4 g/dL (3.5-5.0); BILIRUBIN,DIRECT 0.3 mg/dL (0.0-0.3); CREATININE 0.8 mg/dL (0.5-1.5); MAGNESIUM 2.1 mg/dL (1.80-2.40); PHOSPHORUS 1.7 mg/dL (2.5-4.9); TOTAL PROTEIN, SERUM 5.8 g/dL (6.0-8.3)
[2023-04-24] MEDS: INSULIN HUMULIN R 100 UNIT/ML 3ML SQ SCH ×3 (06:07→12:32)
[2023-04-24] MEDS: INSULIN GLARGINE 100 UNITS/ML 10 ML VIAL SQ SCH (06:21)
[2023-04-24] MEDS: ONDANSETRON 4MG INJ IV PRN (06:25)
[2023-04-24] MEDS: ALPRAZOLAM 0.5 MG TABLET PO PRN ×2 (06:25→11:57)
[2023-04-24 07:58] VITALS: BP 129/90; PULSE 108; RESP 16
[2023-04-24 08:00] VITALS: O2SAT 98
[2023-04-24] MEDS ORDERED: FAMOTIDINE 20MG TAB PO SCH (09:00)
[2023-04-24] MEDS ORDERED: COMPOUND IV REFRIGERATED 1 EACH IVSOLN MISC PRN (10:30)
[2023-04-24] MEDS: FISH OIL 1000 MG/CAP PO SCH (10:35)
[2023-04-24] MEDS: PAROXETINE HCL 20 MG TABLET PO SCH (10:35)
[2023-04-24] MEDS: CEFTRIAXONE 2GM VIAL IVPB SCH (10:36)
[2023-04-24] MEDS: ENOXAPARIN SODIUM 40 MG/0.4 ML SYRINGE SQ SCH (10:37)
[2023-04-24] MEDS: THIAMINE HCL 100 MG, FOLIC ACID 1 MG, M.V.I. IV [ADULT] 10 ML in 0.9%NACL 1000ML 1,000 ML IV SCH (11:21)
[2023-04-24 11:35] VITALS: BP 131/91; PULSE 94; RESP 16
[2023-04-24] MEDS ORDERED: FENO145T26 PO (12:08)
[2023-04-24] MEDS ORDERED: INSU100V3 SQ (12:08)
[2023-04-24] MEDS ORDERED: INSLAN SQ (12:08)
== END 2023-04-24 13:15 | disposition home or self-care (01) | DRG 720 ==
LOC: EDH 19:04 → EDHIP 19:05 → 2BH 04-22 05:34 → 2DH 04-23 22:06
PROVIDERS: ADMIT Internal Medicine; ATTEND Internal Medicine
DX: A41.9 Sepsis, unspecified organism (principal); K85.90 Acute pancreatitis without necrosis or infection, unspecified; E87.20 Acidosis, unspecified; E10.43 Type 1 diabetes mellitus with diabetic autonomic (poly)neuropathy; Z20.822 Contact with and (suspected) exposure to COVID-19; K76.0 Fatty (change of) liver, not elsewhere classified; E78.1 Pure hyperglyceridemia; E78.5 Hyperlipidemia, unspecified; E83.42 Hypomagnesemia; F10.20 Alcohol dependence, uncomplicated; F12.10 Cannabis abuse, uncomplicated; F17.210 Nicotine dependence, cigarettes, uncomplicated; F41.9 Anxiety disorder, unspecified; G89.29 Other chronic pain; I10 Essential (primary) hypertension; Z79.4 Long term (current) use of insulin
CPT/HCPCS: 36415; 36600; 71045; 74177; 80048; 80053; 80061; 80076; 81001; 82010; 82140; 82150; 82550; 82803; 82948; 83036; 83605; 83690; 83735; 83874; 83880; 84100; 84478; 84484; 85025; 85027; 85610; 85730; 87635; 93005; G0378; J0500; J0696; J1170; J1630; J1650; J1815; J2060; J2270; J2405; J2550; J3411; J3475; J3480; J3490; J7030; J7070; J7120; Q9967

== ENCOUNTER 2024-08-15 12:49 | Emergency (ER) | payer MEDICAID ==
[~2024-08-15] VITALS: Ht 180.3 cm; Wt 83.5 kg
[~2024-08-15 12:49] MED LIST changes: -ACET-2079 PO; +ALPR2TAB7 PO; +CEPH500C2 PO; +DICY10CA2 PO; -FENO145T PO; +FENO145T26 PO; +FISH1CAP20 PO; -GLIM4TAB36 PO; -HYDR-3421 PO; -ICOS1CAP2 PO; +INSU200I SQ; +INSU3INS3 SQ; +LISI1TAB51 PO; -METF-444 PO; +METO25TA6 PO; -MIRT-120 PO; +NIAC250T34 PO; -OMEG-148 PO; -PARO-149 PO; -ROSU20TA73 PO; -TRAZ-253 PO
--- NOTE | 2024-08-15 13:11 | ERN ---
ED Note History of Present Illness Stated Complaint: HIP PAIN Chief Complaint: Hip Pain/Injury Time Seen by MD: 12:54 Dictation: PATIENT IS A 34-YEAR-OLD MALE COMING IN TODAY WITH COMPLAINTS OF LEFT LATERAL HIP PAIN STATUS POST A SAME LEVEL TRIP FALL MAY 13, 2024. HE STATES HE WENT TO SEE HIS DOCTOR BLADE=[employer] AND HAD X-RAYS DONE OF HIS CHEST HOWEVER THE X-RAYS WERE NOT DONE OF HIS HIP. HE STATES HE HAD TO LEFT LATERAL RIB FRACTURES THAT HAVE HEALED SINCE THE FALL HOWEVER HE HAS CONTINUES TO HAVE PAIN TO HIS LEFT HIP. HE HAS BEEN AMBULATORY SINCE THE FALL, STATES HE DOES NOT WORK. NO SHORTENING OR ROTATION DISTAL NEUROVASCULAR CMS INTACT. HE ALSO STATES HE IS HAVING SOME LEFT LATERAL JAW PAIN WITH CHEWING I EXPLAINED TO HIM HAVE WE WOULD HAVE TO TAKE THAT TO HIS DENTIST. Allergies: Coded Allergies: No Known Allergies (Unverified Allergy, Unknown, 09/20/22) Home Meds Active Scripts Ibuprofen (Ibuprofen 800 mg Tab) 800 Mg Tab, 800 MG PO Q8H PRN for fever or pain, #30 TAB 0 Refills Prov:JANEE BARRETO NP 08/15/24 Insulin Lispro (Humalog Kwikpen) 200 Unit/Ml (3 Ml) Insuln.pen, 2 UNIT SQ ACHS for 30 Days, #2 SYRINGE 2 Refills Prov:FANTA SPARKS MD 03/25/24 Insulin Glargine,Hum.rec.anlog (Lantus Solostar) 100 Unit/Ml (3 Ml) Insuln.pen, 20 UNIT SQ bedtime for 30 Days, #2 SYRINGE 2 Refills Prov:FANTA SPARKS MD 03/25/24 [place]-3 Fatty Acids/Fish Oil (Eql Fish Oil 1,000 mg Softgel) 300 Mg-1,000 Mg Capsule, 2000 MG PO BID for 30 Days, #30 CAP 1 Refill Prov:FANTA SPARKS MD 03/25/24 Niacin (Slo-Niacin) 250 Mg Tablet.er, 250 MG PO HS for 30 Days, #30 TAB 1 Refill Prov:FANTA SPARKS MD 03/25/24 Dicyclomine HCl (Dicyclomine HCl) 10 Mg Capsule, 20 MG PO TIDP PRN for ABDOMINAL PAIN, #15 CAP 0 Refills Prov:CHRISTIAN MALDONADO 12/28/23 Cephalexin (Cephalexin) 500 Mg Capsule, 500 MG PO BID, #6 CAP 0 Refills Prov:CHRISTIAN MALDONADO [facility] 12/28/23 Fenofibrate Nanocrystallized (Fenofibrate) 145 Mg Tablet, 145 MG PO DAILY, #30 TAB 0 Refills Prov:CHRISTIAN MALDONADO [facility] 12/28/23 Reported Medications Lisinopril/Hydrochlorothiazide (Lisinopril-Hctz 20-12.5 mg Tab) 20 Mg-12.5 Mg Tablet, 1 EACH PO DAILY, TAB 11/24/23 Metoprolol Tartrate (Metoprolol Tartrate) 25 Mg Tablet, 25 MG PO BID, TAB 11/24/23 Alprazolam (Alprazolam) 2 Mg Tablet, 1-2 MG PO TID, TAB 11/24/23 Past Medical History Past Medical History: Anxiety, Diabetes-Type I, Hypertension, Pancreatitis Additional Past Medical Hx: Alcohol abuse Surgical History: None PSYCH History: no pertinent psych hx Family History: Negative Social History: ETOH, Lives with family RN Note Reviewed/Agreed w/PFSH: Yes Review of System Dictation CONSTITUTIONAL: NEGATIVE EXCEPT FOR HPI HEAD/FACE: NEGATIVE EXCEPT FOR HPI EENT: NEGATIVE EXCEPT FOR HPI RESPIRATORY: NEGATIVE EXCEPT FOR HPI GASTROINTESTINAL/ABDOMINAL: NEGATIVE EXCEPT FOR HPI GENITOURINARY: NEGATIVE EXCEPT FOR HPI MUSCULOSKELETAL: NEGATIVE EXCEPT FOR HPI LEFT LATERAL HIP PAIN INTEGUMENTARY: NEGATIVE EXCEPT FOR HPI NEUROLOGICAL/PSYCH: NEGATIVE EXCEPT FOR HPI HEMATOLOGIC/LYMPHATIC: NEGATIVE EXCEPT FOR HPI ALL SYSTEMS NEGATIVE, EXCEPT NOTED ABOVE. 13 POINT REVIEW OF SYSTEMS ASSESSED AND ALL NEGATIVE EXCEPT FOR ABOVE. Initial Vital Sign VS Vital Signs Date Time Temp Pulse Resp B/P (MAP) Pulse Ox O2 Delivery O2 Flow Rate FiO2 08/15/24 12:51 98.2 100 16 141/90 98 Room Air 0 08/15/24 15:13 21 Physical Exam Dictation VITAL SIGNS REVIEWED GENERAL APPEARANCE: ALERT, ORIENTED X 3, MILD ACUTE DISTRESS, WELL DEVELOPED, NOURISHED. HEAD AND FACE: NON-TRAUMATIC. MILD LEFT TMJ TENDERNESS WITH RANGE OF MOTION OF JAW EYES: PERRL, PINK CONJUNCTIVAS, EYELID NO TRAUMA, ANTERIOR CHAMBER WITH ARCUS SENILIS. EARS: PINNAS INTACT AND NO SIGNS OF TRAUMA OR ERYTHEMA EAR CANALS CLEAR AND NO DISCHARGE TM NO ERYTHEMA NOSE: NO DISCHARGE, NO BLEEDING. OROPHARYNX: MOUTH NORMAL, TONGUE PINK, PHARYNX CLEAR,NO ERYTHEMA, TONSILS NO EXUDATES, NO ABSCESSES NOTED, MUCOUS MEMBRANE MOIST NECK: SUPPLE, NON-TENDER, NO THYROMEGALY, NO MASSES, NO JVD, NO BRUITS BREAST:DEFERRED CHEST:NO TENDERNESS, NO CREPITUS, NO PARADOXICAL MOVEMENT, NO RETRACTIONS LUNGS:CLEAR, WELL-VENTILATED, SYMMETRIC, NO RALES, NO WHEEZING, NO RHONCHI, NO STRIDOR, GOOD BREATH SOUNDS BILATERALLY HEART: REGULAR RATE, REGULAR RHYTHM, NO MURMUR, NO GALLOPS VASCULAR: NO PERIPHERAL EDEMA, ABDOMEN: SOFT, POSITIVE BOWEL SOUNDS, NONDISTENDED, NO GUARDING, NONTENDER, NO REBOUND, NO MASSES NO HEPATOMEGALY, NO SPLENOMEGALY, NO TUCKER'S SIGN, NO HERNIAS. RECTAL: DEFERRED GENITAL: DEFERRED NEUROLOGICAL: NORMAL SPEECH, MOTOR FUNCTION INTACT, SENSORY FUNCTION INTACT MUSCULOSKELETAL: NECK NONTENDER, FULL RANGE OF MOTION, BACK NONTENDER, FULL RANGE OF MOTION, EXTREMITIES: NONTENDER, FULL RANGE OF MOTION MILD LEFT LATERAL HIP PAIN WITH PALPATION. NO SHORTENING OR ROTATION OF LEG. DISTAL NEUROVASCULAR CMS INTACT SKIN: COLOR PINK, DRY, NO TURGOR, NO RASH, NO LACERATIONS, NO ABRASIONS, NO CONTUSIONS. LYMPHATIC: DEFERRED Results (Laboratory/Radiology) Labs Reviewed?: Yes ED Course ED Course Orders Procedure Category Date Status Time Hip Unilat 2-3vw Left RAD 08/15/24 Resulted 13:05 Ketorolac PHA 08/15/24 Complete Tromethamine 30mg/Ml 13:30 Current Medications Medications (Trade) Dose Ordered Sig/Elisa Route PRN Reason Start Time Stop Time Status Last Admin Dose Admin Ketorolac Tromethamine (toRADol) 30 mg ONCE ONCE IVP 08/15/24 13:30 08/15/24 13:31 DC 08/15/24 13:30 Vital Signs Date Time Temp Pulse Resp B/P (MAP) Pulse Ox O2 Delivery O2 Flow Rate FiO2 08/15/24 15:13 98.2 88 18 135/87 98 Room Air* 0 21 08/15/24 12:51 98.2 100 16 141/90 98 Room Air 0 Medical Decision Making MDM MEDICAL DISCHARGE MAKING BASED ON X-RAY OF LEFT HIP TMJ PAIN WAS REFERRED TO DENTIST LEFT HIP X-RAY NEGATIVE PATIENT DISCHARGED HOME ON IBUPROFEN TOLD TO SEE HIS PRIMARY CARE DOCTOR DX & DISP Disposition: Discharge Departure Impression: Primary Impression: Left hip pain Additional Impression: Fall Condition: Stable Scripts Ibuprofen (Ibuprofen 800 mg Tab) 800 Mg Tab 800 MG PO Q8H PRN for fever or pain, #30 TAB 0 Refills Prov: JANEE BARRETO NP 08/15/24 Additional Instructions: FOLLOW-UP WITH PRIMARY CARE PROVIDER IN 1 TO 2 DAYS. TAKE MEDICATIONS DIRECTED HERE IN THE EMERGENCY ROOM. OKAY TO CONTINUE HOME MEDICATIONS UNLESS OTHERWISE DISCUSSED DURING YOUR VISIT IN THE EMERGENCY ROOM TODAY. RETURN TO YOUR NEAREST EMERGENCY ROOM IF SYMPTOMS WORSEN OR IF THERE IS NO IMPROVEMENT. CALL 911 IF YOU NEED IMMEDIATE ASSISTANCE. TAKE TYLENOL OR MOTRIN OVER-THE-CO UNTER NEEDED AND IF NO CONTRAINDICATIONS ARE PRESENT. INCREASE ORAL HYDRATION. A WOUND CULTURE OR URINE CULTURE WAS ORDERED HERE IN THE EMERGENCY ROOM DEPARTMENT PLEASE FOLLOW-UP WITH PRIMARY CARE PROVIDER AND ADVISE THEM TO GET REPEAT PORTS FROM OUR FACILITY. IF YOU HAD ANY NICHOLAS WRAP/SPLINTS THAT WERE APPLIED HERE, PLEASE DO NOT REMOVE THEM UNTIL YOU SEE YOUR PRIMARY CARE OR SPECIALTY. TAKE IBUPROFEN NEEDED FOR PAIN. FOLLOW UP WITH YOUR DENTIST FOR YOUR LEFT LATERAL JAW PAIN. Referrals: TIRSO PRINCE MD (PCP) Time of Disposition: 14:51 I have reviewed the case, and I agree with, Diagnosis and Plan ATTESTATION BY PHYSICIAN I PERFORMED THE SUBSTANTIVE PORTION OF THE VISIT. I HAVE REVIEWED AND PERSONAL LY MADE AND APPROVED THE MANAGEMENT PLAN THAT IS DOCUMENTED IN THE NOTE BY MYSELF FOR THE A PP. I ACKNOWLEDGED FOR RESPONSIBILITY FOR THE PATIENT'S MANAGEMENT PLAN. JANEE BARRETO NP Aug 15, 2024 13:11 ROSALINO RODGERS MD Aug 15, 2024 17:27
[2024-08-15] MEDS: ketOROlac 30MG VIAL (30MG/ML) IVP ONE (13:30)
[2024-08-15] MEDS ORDERED: IBUP-2077 PO (14:52)
--- NOTE | 2024-08-15 15:02 | HMCIMG ---
HIP UNILAT 2-3VW LEFT HISTORY: Hip pain COMPARISON: None TECHNIQUE: 2 images of left hip were obtained. FINDINGS: There is no acute displaced fracture or dislocation. Degenerative changes are seen. IMPRESSION: 1. Findings as described above.
[2024-08-15 15:13] VITALS: BP 135/87; PULSE 88; RESP 18; TEMP 98.3; O2SAT 98
== END 2024-08-15 15:14 | disposition home or self-care (01) ==
LOC: EDH 12:49
DX: M25.552 Pain in left hip (principal); E10.9 Type 1 diabetes mellitus without complications; F41.9 Anxiety disorder, unspecified; I10 Essential (primary) hypertension; Z79.4 Long term (current) use of insulin; Z79.899 Other long term (current) drug therapy; W01.0XXA Fall on same level from slipping, tripping and stumbling without subsequent striking against object, initial encounter; Y93.89 Activity, other specified; Y92.89 Other specified places as the place of occurrence of the external cause; Y99.8 Other external cause status
CPT/HCPCS: 99283; 96374; 73502; J1885

== ENCOUNTER 2024-08-21 15:27 | Emergency (ER) | payer SELFPAY ==
[~2024-08-21] VITALS: Ht 170.2 cm; Wt 83.5 kg
[~2024-08-21 15:27] MED LIST changes: +IBUP-2077 PO
--- NOTE | 2024-08-21 15:41 | ERN ---
ED Note History of Present Illness Stated Complaint: ABD PAIN Chief Complaint: Abdominal Pain Time Seen by MD: 15:29 Dictation: Patient is a 34-year-old male who states he is an alcoholic. And drinks every day. States he is here today for abdominal pain with nausea vomiting, pain is diffuse states he has a history of chronic pancreatitis. No fever no chills no diarrhea has not been to see his primary care doctor because I do not have the insurance go to my doctor. Allergies: Coded Allergies: No Known Allergies (Unverified Allergy, Unknown, 09/20/22) Home Meds Active Scripts Dicyclomine HCl (Bentyl) 20 Mg Tab, 20 MG PO Q6HPRN PRN for ABDOMINAL PAIN/CRAMPING, #30 TAB Prov:JANEE BARRETO NP 08/21/24 Ibuprofen (Ibuprofen 800 mg Tab) 800 Mg Tab, 800 MG PO Q8H PRN for fever or pain, #30 TAB 0 Refills Prov:JANEE BARRETO NP 08/15/24 Insulin Lispro (Humalog Kwikpen) 200 Unit/Ml (3 Ml) Insuln.pen, 2 UNIT SQ ACHS for 30 Days, #2 SYRINGE 2 Refills Prov:FANTA SPARKS MD 03/25/24 Insulin Glargine,Hum.rec.anlog (Lantus Solostar) 100 Unit/Ml (3 Ml) Insuln.pen, 20 UNIT SQ bedtime for 30 Days, #2 SYRINGE 2 Refills Prov:FANTA SPARKS MD 03/25/24 [place]-3 Fatty Acids/Fish Oil (Eql Fish Oil 1,000 mg Softgel) 300 Mg-1,000 Mg Capsule, 2000 MG PO BID for 30 Days, #30 CAP 1 Refill Prov:FANTA SPARKS MD 03/25/24 Niacin (Slo-Niacin) 250 Mg Tablet.er, 250 MG PO HS for 30 Days, #30 TAB 1 Refill Prov:FANTA SPARKS MD 03/25/24 Dicyclomine HCl (Dicyclomine HCl) 10 Mg Capsule, 20 MG PO TIDP PRN for ABDOMINAL PAIN, #15 CAP 0 Refills Prov:CHRISTIAN MALDONADO [employer] 12/28/23 Cephalexin (Cephalexin) 500 Mg Capsule, 500 MG PO BID, #6 CAP 0 Refills Prov:CHRISTIAN MALDONADO [facility] 12/28/23 Fenofibrate Nanocrystallized (Fenofibrate) 145 Mg Tablet, 145 MG PO DAILY, #30 TAB 0 Refills Prov:CHRISTIAN MALDONADO [facility] 12/28/23 Reported Medications Lisinopril/Hydrochlorothiazide (Lisinopril-Hctz 20-12.5 mg Tab) 20 Mg-12.5 Mg Tablet, 1 EACH PO DAILY, TAB 11/24/23 Metoprolol Tartrate (Metoprolol Tartrate) 25 Mg Tablet, 25 MG PO BID, TAB 11/24/23 Alprazolam (Alprazolam) 2 Mg Tablet, 1-2 MG PO TID, TAB 11/24/23 Past Medical History Past Medical History: Anxiety, Diabetes-Type I, Hypertension, Pancreatitis Additional Past Medical Hx: Alcohol abuse Surgical History: None Family History: Negative Social History: ETOH, Lives with family RN Note Reviewed/Agreed w/PFSH: Yes Review of System Dictation CONSTITUTIONAL: Negative except for HPI HEAD/FACE: Negative except for HPI EENT: Negative except for HPI RESPIRATORY: Negative except for HPI GASTROINTESTINAL/ABDOMINAL: Negative except for HPI diffuse abdominal pain cramping with nausea vomiting GENITOURINARY: Negative except for HPI MUSCULOSKELETAL: Negative except for HPI INTEGUMENTARY: Negative except for HPI NEUROLOGICAL/PSYCH: Negative except for HPI HEMATOLOGIC/LYMPHATIC: Negative except for HPI All Systems Negative, Except as noted above. 13 point review of systems assessed and all negative except for above. Initial Vital Sign VS Vital Signs Date Time Temp Pulse Resp B/P (MAP) Pulse Ox O2 Delivery O2 Flow Rate FiO2 08/21/24 15:28 98.8 94 18 128/82 99 08/21/24 15:35 Room Air* 0 21 Physical Exam Dictation Vital Signs reviewed General Appearance: Alert, oriented x 3, mild acute distress, well developed, nourished. Head and Face: non-traumatic. Eyes: PERRL, pink conjunctivas, eyelid no trauma, anterior chamber with arcus senilis. Ears: Pinnas intact and no signs of trauma or erythema ear canals clear and no discharge TM no erythema Nose: No discharge, no bleeding. Oropharynx: Mouth normal, tongue pink, pharynx clear,no erythema, tonsils no exudates, no abscesses noted, mucous membrane moist Neck: Supple, non-tender, no thyromegaly, no masses, no JVD, no bruits Breast:Deferred Chest:No tenderness, no crepitus, no paradoxical movement, no retractions Lungs:Clear, well-ventilated, symmetric, no rales, no wheezing, no rhonchi, no stridor, good breath sounds bilaterally Heart: Regular rate, regular rhythm, no murmur, no gallops Vascular: no peripheral edema, Abdomen: Soft, positive bowel sounds, nondistended, no guarding, Diffuse tenderness to the abdomen no focal tenderness. Negative CVAT bilateral Rectal: Deferred Genital: Deferred Neurological: Normal speech, motor function intact, sensory function intact Musculoskeletal: Neck nontender, full range of motion, back nontender, full range of motion, Extremities: nontender, full range of motion Skin: Color pink, dry, no turgor, no rash, no lacerations, no abrasions, no contusions. Lymphatic: Deferred Results (Laboratory/Radiology) Laboratory/Radiology Laboratory Tests Test 08/21/24 15:45 08/21/24 16:54 White Blood Count 12.8 K/uL (4.8-10.8) H Red Blood Count 5.01 MIL/uL (4.50-6.20) Hemoglobin 16.2 g/dL (14.0-18.0) Hematocrit 44.6 % (42-54) Mean Corpuscular Volume 89.0 fL (79-99) Mean Corpuscular Hemoglobin 32.3 pg (27.0-33.0) Mean Corpuscular Hemoglobin Concent 36.3 g/dL (32.0-36.0) H Red Cell Distribution Width 11.5 % (11.0-15.5) Platelet Count 230 K/uL (130-400) Mean Platelet Volume 10.4 fL (7.5-10.5) Immature Granulocyte % (Auto) 0.6 % (0-1) Neutrophils (%) (Auto) 79.8 % (40.0-77.0) H Lymphocytes (%) (Auto) 11.7 % (21.0-51.0) L Monocytes (%) (Auto) 7.2 % (3.0-13.0) Eosinophils (%) (Auto) 0.2 % (0.0-8.0) Basophils (%) (Auto) 0.5 % (0.0-5.0) Neutrophils # (Auto) 10.2 K/uL (1.8-7.7) H Lymphocytes # (Auto) 1.5 K/uL (1.0-4.8) Monocytes # (Auto) 0.9 K/uL (0.1-1.0) Eosinophils # (Auto) 0.03 K/uL (0.00-0.70) Basophils # (Auto) 0.07 K/uL (0.00-0.20) Absolute Immature Granulocyte (auto 0.08 K/uL (0-1) Nucleated Red Blood Cells 0.0 % (0.0-0.19) Red Blood Cell Morphology See comments Sodium Level 135 mmol/L (136-145) L Potassium Level 4.3 mmol/L (3.5-5.1) Chloride Level 95 mmol/L (101-111) L Carbon Dioxide Level 30 mmol/L (21-32) Blood Urea Nitrogen 11 mg/dL (7-18) Creatinine 0.9 mg/dL (0.5-1.3) Glomerular Filtration Rate Calc 116 mL/min (>90) Random Glucose 284 mg/dL (70-105) H Total Calcium 10.0 mg/dL (8.5-10.1) Lipase 11 U/L (16-77) L Whole Blood Glucose 263 MG/DL (70-110) H Labs Reviewed?: Yes ED Course ED Course Orders Procedure Category Date Status Time Cbc With Differential LAB 08/21/24 Complete 15:38 Urinalysis Profile LAB 08/21/24 Logged 15:38 0.9%Nacl 1000ml (Ns PHA 08/21/24 Complete 1000ml) 16:00 Morphine 2mg Syg PHA 08/21/24 Complete (Morphine 2mg Syg) 16:00 Ondansetron 4mg Inj PHA 08/21/24 Complete (Zofran 4mg Inj) 16:00 Lipase LAB 08/21/24 Complete 15:38 Basic Metabolic Panel LAB 08/21/24 Complete 15:38 Insulin Regular, PHA 08/21/24 In Process Human 3ml (Humulin R 16:30 Current Medications Medications (Trade) Dose Ordered Sig/Elisa Route PRN Reason Start Time Stop Time Status Last Admin Dose Admin Insulin Human Regular (humuLIN R 100 UNIT/ML 3ML) 10 unit ONCE IV 08/21/24 16:30 08/21/24 21:30 08/21/24 16:39 Morphine Sulfate (morPHINE 2MG SYG) 2 mg ONCE ONCE IVP 08/21/24 16:00 08/21/24 16:01 DC 08/21/24 16:09 Ondansetron HCl (zoFRAN 4MG INJ) 4 mg ONCE ONCE IVP 08/21/24 16:00 08/21/24 16:01 DC 08/21/24 16:10 Sodium Chloride 1,000 ml @ 0 mls/hr ONCE ONCE IV 08/21/24 16:00 08/21/24 16:01 DC 08/21/24 16:09 Vital Signs Date Time Temp Pulse Resp B/P (MAP) Pulse Ox O2 Delivery O2 Flow Rate FiO2 08/21/24 18:46 98.8 97 18 133/82 97 Room Air* 0 08/21/24 17:22 98.8 99 18 130/87 99 Room Air* 0 08/21/24 15:35 98.8 103 18 119/85 98 Room Air* 0 08/21/24 15:28 98.8 94 18 128/82 99 1828, PATIENT STATES HIS PAIN IS MARKEDLY REDUCED AFTER TREATMENT. BLOOD SUGAR IS 265 AFTER TREATMENT WITH FLUIDS AND REGULAR INSULIN. PATIENT STATES HE IS STILL DRINKING ON A DAILY BASIS USUALLY 3-4 MIXED DRINKS WITH A FRUIT JUICE IN IT. HE HAS ALL OF HIS DIABETIC MEDICATIONS HE SAYS IT IS HIS HOME. PATIENT WAS STRONGLY ADVISED TO STOP DRINKING, GO SEE HIS DR. PRINCE IN THE NEXT 2-3 DAYS. Medical Decision Making MDM MDM: DIFFERENTIAL DIAGNOSIS: CHOLELITHIASIS/PANCREATITIS/GASTRITIS/ELECTROLYTE IMBALANCE/DEHYDRATION RATIONALE: TESTS CONSIDERED AND ORDERED SECONDARY TO SHARED DECISION MAKING INCLUDE: LABS PREVIOUS OUTSIDE RECORDS REVIEWED: OLD ER VISITS. REVIEWED RISK OF COMPLICATION AND/OR MORBIDITY OR MORTALITY OF PATIENT MANAGEMENT: NONE MEDICATIONS-PER MEDICATION RECONCILIATION SEE NEED FOR HOSPITALIZATION: PATIENT DOES NOT MEET CRITERIA FOR HOSPITALIZATION. NURSE'S NOTES NEED FOR EMERGENCY MAJOR/MINOR SURGERY: NO THERE ARE NO SOCIAL CONCERNS WITH THIS PATIENT. PRESCRIPTION DRUG MANAGEMENT NO NO PRESCRIPTIONS WILL INCLUDE SYMPTOMATIC CARE PATIENT'S PRIOR EXTERNAL MEDICAL RECORDS FROM OTHER ER VISITS WERE REVIEWED BY ME INDICATED. PRIOR TESTING AND RESULTS FROM PREVIOUS VISITS WERE REVIEWED. PRIOR TESTS WERE TAKEN INTO ACCOUNT WITH MEDICAL DECISION MAKING AND RESOURCE UTILIZATION, INDEPENDENT HISTORIAN/HISTORIANS WERE USED TO OBTAIN COMPLETE MEDICAL HISTORY. I INDEPENDENTLY INTERPRETED THE TEST THAT WERE PERFORMED, RESULTS WERE REVIEWED BY ME AND CONSIDERED FINDINGS ON RADIOLOGY IF ORDERED. MEDICAL MANAGEMENT AND EXAMINATION INTERPRETATION DISCUSSIONS WERE HAD BY ME WITH OTHER QUALIFIED HEALTHCARE PROFESSIONALS INDICATED FOR THE PATIENT'S CARE. DX & DISP Disposition: Discharge Departure Impression: Primary Impression: Acute abdominal pain Additional Impressions: Uncontrolled diabetes mellitus, Alcohol abuse, Hyponatremia Condition: Stable Scripts Dicyclomine HCl (Bentyl) 20 Mg Tab 20 MG PO Q6HPRN PRN for ABDOMINAL PAIN/CRAMPING, #30 TAB Prov: JANEE BARRETO [employer] 08/21/24 Additional Instructions: FOLLOW-UP WITH PRIMARY CARE PROVIDER IN 1 TO 2 DAYS. TAKE MEDICATIONS DIRECTED HERE IN THE EMERGENCY ROOM. OKAY TO CONTINUE HOME MEDICATIONS UNLESS OTHERWISE DISCUSSED DURING YOUR VISIT IN THE EMERGENCY ROOM TODAY. RETURN TO YOUR NEAREST EMERGENCY ROOM IF SYMPTOMS WORSEN OR IF THERE IS NO IMPROVEMENT. CALL 911 IF YOU NEED IMMEDIATE ASSISTANCE. TAKE TYLENOL OR MOTRIN [id number] NEEDED AND IF NO CONTRAINDICATIONS ARE PRESENT. INCREASE ORAL HYDRATION. A WOUND CULTURE OR URINE CULTURE WAS ORDERED HERE IN THE EMERGENCY ROOM DEPARTMENT PLEASE FOLLOW-UP WITH PRIMARY CARE PROVIDER AND ADVISE THEM TO GET REPEAT PORTS FROM OUR FACILITY. IF YOU HAD ANY NICHOLAS WRAP/SPLINTS THAT WERE APPLIED HERE, PLEASE DO NOT REMOVE THEM UNTIL YOU SEE YOUR PRIMARY CARE OR SPECIALTY. CLEAR LIQUID DIET FOR THE NEXT18 HOURS AND THEN ADVANCE DIET SLOWLY TO REGULAR. STOP USING ALCOHOL, SEE DR. PRINCE IN 1-2 DAYS FOR FOLLOW UP AND MANAGEMENT. Referrals: TIRSO PRINCE MD (PCP) Time of Disposition: 18:28 I have reviewed the case, and I agree with, Diagnosis and Plan I performed a substantive portion of the visit. I have reviewed and personally made and approve the management plan that is documented in the notes by myself with KATHERYN/resident. I acknowledged full responsibility for the patient's management plan. JANEE BARRETO NP Aug 21, 2024 15:41 JAMES VAIL DO Aug 21, 2024 19:02
[2024-08-21 15:52] LABS: BASOPHILS # (AUTO) 0.07 K/uL (0.00-0.20); BASOPHILS % (AUTO) 0.5 % (0.0-5.0); EOSINOPHILS # (AUTO) 0.03 K/uL (0.00-0.70); EOSINOPHILS % (AUTO) 0.2 % (0.0-8.0); HEMATOCRIT 44.6 % (42-54); IMMATURE GRANULOCYTE ABSOLUTE 0.08 K/uL (0-1); LYMPHOCYTES # (AUTO) 1.5 K/uL (1.0-4.8); LYMPHOCYTES % (AUTO) 11.7 % (21.0-51.0); MEAN CORPUSCULAR HEMOGLOBIN 32.3 pg (27.0-33.0); MEAN CORPUSCULAR HGB CONC 36.3 g/dL (32.0-36.0); MONOCYTES # (AUTO) 0.9 K/uL (0.1-1.0); MONOCYTES % (AUTO) 7.2 % (3.0-13.0); NEUTROPHILS # (AUTO) 10.2 K/uL (1.8-7.7); NEUTROPHILS % (AUTO) 79.8 % (40.0-77.0); PLATELET COUNT (AUTO) 230 K/uL (130-400); RED BLOOD CELL COUNT(AUTO) 5.01 MIL/uL (4.50-6.20); RED CELL DISTRIBUTION WIDTH 11.5 % (11.0-15.5); WHITE BLOOD COUNT (AUTO) 12.8 K/uL (4.8-10.8)
[2024-08-21] MEDS: 0.9%NACL 1000ML 1,000 ML IV ONE (16:09)
[2024-08-21] MEDS: morPHINE 2 MG SYG IVP ONE (16:09)
[2024-08-21 16:10] LABS: CREATININE 0.9 mg/dL (0.5-1.3); POTASSIUM 4.3 mmol/L (3.5-5.1)
[2024-08-21] MEDS: ondanSETRON 4MG INJ IVP ONE (16:10)
[2024-08-21] MEDS: INSULIN humuLIN R 100 UNIT/ML 3ML IV SCH (16:39)
[2024-08-21] MEDS ORDERED: DICY20TA2 PO (18:29)
[2024-08-21 18:46] VITALS: BP 133/82; PULSE 97; RESP 18; TEMP 98.8; O2SAT 97
== END 2024-08-21 18:46 | disposition home or self-care (01) ==
LOC: EDH 15:27
DX: E10.65 Type 1 diabetes mellitus with hyperglycemia (principal); R10.84 Generalized abdominal pain; F10.10 Alcohol abuse, uncomplicated; E87.1 Hypo-osmolality and hyponatremia; F41.9 Anxiety disorder, unspecified; I10 Essential (primary) hypertension; Z79.4 Long term (current) use of insulin; Z79.899 Other long term (current) drug therapy
CPT/HCPCS: 99284; 96374; 96375; 96361; 80048; 83690; 85025; 82948; 36415; J1815; J2270; J7030; J2405

== ENCOUNTER 2024-10-12 00:46 | Emergency (ER) | payer MEDICAID ==
[~2024-10-12] VITALS: Ht 175.3 cm; Wt 79.4 kg
[~2024-10-12 00:46] MED LIST changes: -CEPH500C2 PO; -DICY10CA2 PO; -IBUP-2077 PO; -INSU200I SQ
--- NOTE | 2024-10-12 01:59 | HMCIMG ---
CT ABDOMEN/PELVIS W/O CONTRAST HISTORY: Diffuse abdominal pain COMPARISON: 12/25/2023 TECHNIQUE: Multiple sequential axial images of the abdomen and pelvis were obtained from the dome of the diaphragm through symphysis pubis. Patient was not given contrast through intravenous route. Oral contrast was not given. FINDINGS: No pleural effusion is seen bilaterally. There is no evidence of parenchymal disease or pulmonary nodule of the visualized lower lungs. Degenerative changes of the thoracolumbar spine are present. The heart is not enlarged. Liver is enlarged measuring 17 cm. There is mesenteric fat stranding adjacent to the pancreas may be related to pancreatitis. Lipase correlation may be helpful. The liver, spleen, adrenal glands and pancreas are unremarkable. There is no evidence of hydronephrosis bilaterally. No evidence of renal stone is seen. Fecal material is seen in the colon. There are normal size retroperitoneal and mesenteric lymph nodes. No ascites is seen. No definite CT evidence of acute appendicitis is seen. Clinical correlation is recommended. A small hiatal hernia is seen. Pelvic sidewalls are symmetric bilaterally. Bladder is poorly distended. IMPRESSION: 1. There is mesenteric fat stranding adjacent to the pancreas may be related to pancreatitis. Lipase correlation may be helpful. CT was performed with one or more following dose reduction techniques: automated exposure control, adjustment of the mA and kv according to patient's size, or use of a iterative reconstruction technique.
--- NOTE | 2024-10-12 02:03 | ERN ---
General Chief Complaint: Constipation Stated Complaint: CONSTIPATION X 1 WEEK Time Seen by MD: 01:02 Time Seen by Midlevel: 01:02 Source: patient History of Present Illness Initial Comments Patient is a 34-year-old male with a past medical history of hypertension, and type 2 diabetes presenting to the emergency department with constipation and diffuse abdominal pain that has been ongoing for the last week. Patient was discharged from our hospital proximally one week ago after he was found to be in DKA. Patient states that during his hospital stay he had no bowel movement. He was discharged home and continued to have no bowel movements. He reports diffuse abdominal pain with multiple episodes of vomiting earlier today. He admits to being able to pass gas. He specifically denies any fever, chills, or any other symptoms at this time. Allergies: Coded Allergies: No Known Allergies (Unverified Allergy, Unknown, 09/20/22) Home Meds Active Scripts Sennosides/Docusate Sodium (Senna-Docusate Sodium Tablet) 8.6 Mg-50 Mg Tablet, 2 TAB PO BID for 5 Days, #20 TAB 0 Refills Prov:BOO NICHOLAS MD 10/12/24 Insulin Glargine,Hum.rec.anlog (Lantus Solostar) 100 Unit/Ml (3 Ml) Insuln.pen, 20 UNIT SQ bedtime for 30 Days, #2 SYRINGE 2 Refills Prov:FANTA SPARKS MD 03/25/24 [place]-3 Fatty Acids/Fish Oil (Eql Fish Oil 1,000 mg Softgel) 300 Mg-1,000 Mg Capsule, 2000 MG PO BID for 30 Days, #30 CAP 1 Refill Prov:FANTA SPARKS MD 03/25/24 Niacin (Slo-Niacin) 250 Mg Tablet.er, 250 MG PO HS for 30 Days, #30 TAB 1 Refill Prov:FANTA SPARKS MD 03/25/24 Fenofibrate Nanocrystallized (Fenofibrate) 145 Mg Tablet, 145 MG PO DAILY, #30 TAB 0 Refills Prov:CHRISTIAN MALDONADOP 12/28/23 Reported Medications Lisinopril/Hydrochlorothiazide (Lisinopril-Hctz 20-12.5 mg Tab) 20 Mg-12.5 Mg Tablet, 1 EACH PO DAILY, TAB 11/24/23 Metoprolol Tartrate (Metoprolol Tartrate) 25 Mg Tablet, 25 MG PO BID, TAB 11/24/23 Alprazolam (Alprazolam) 2 Mg Tablet, 1-2 MG PO TID, TAB 11/24/23 Discontinued Scripts Dicyclomine HCl (Bentyl) 20 Mg Tab, 20 MG PO Q6HPRN PRN for ABDOMINAL PAIN/CRAMPING, #30 TAB Prov:JANEE BARRETO SLIDE MACHINE TENDER 08/21/24 Ibuprofen (Ibuprofen 800 mg Tab) 800 Mg Tab, 800 MG PO Q8H PRN for fever or pain, #30 TAB 0 Refills Prov:JANEE BARRETO SLIDE MACHINE TENDER 08/15/24 Insulin Lispro (Humalog Kwikpen) 200 Unit/Ml (3 Ml) Insuln.pen, 2 UNIT SQ ACHS for 30 Days, #2 SYRINGE 2 Refills Prov:FANTA SPARKS MD 03/25/24 Dicyclomine HCl (Dicyclomine HCl) 10 Mg Capsule, 20 MG PO TIDP PRN for ABDOMINAL PAIN, #15 CAP 0 Refills Prov:CHRISTIAN MALDONADO SCALE MODEL MAKER 12/28/23 Cephalexin (Cephalexin) 500 Mg Capsule, 500 MG PO BID, #6 CAP 0 Refills Prov:CHRISTIAN MALDONADO SCALE MODEL MAKER 12/28/23 Past Medical History Past Medical History: Anxiety, Diabetes-Type II, Hypertension Medical History Other: Alcohol abuse, Marijuana abuse, methamphetamine abuse Past Surgical History: None Family History Family History: Negative Social History Social History: ETOH, Lives with family ROS Dictation CONSTITUTIONAL: Negative except for HPI HEAD/FACE: Negative except for HPI EENT: Negative except for HPI RESPIRATORY: Negative except for HPI GASTROINTESTINAL/ABDOMINAL: Negative except for HPI GENITOURINARY: Negative except for HPI MUSCULOSKELETAL: Negative except for HPI INTEGUMENTARY: Negative except for HPI NEUROLOGICAL/PSYCH: Negative except for HPI HEMATOLOGIC/LYMPHATIC: Negative except for HPI All Systems Negative, Except as noted above. 13 point review of systems assessed and all negative except for above. Physical Exam Physical Exam Dictation Vital Signs reviewed General Appearance: Alert, oriented x 3, no acute distress, well developed, nourished. Head and Face: non-traumatic. Eyes: PERRL, pink conjunctivas, eyelid no trauma, anterior chamber with arcus senilis. Ears: Pinnas intact and no signs of trauma or erythema ear canals clear and no discharge TM no erythema Nose: No discharge, no bleeding. Oropharynx: Mouth normal, tongue pink, pharynx clear,no erythema, tonsils no exudates, no abscesses noted, mucous membrane moist Neck: Supple, non-tender, no thyromegaly, no masses, no JVD, no bruits Breast:Deferred Chest:No tenderness, no crepitus, no paradoxical movement, no retractions Lungs:Clear, well-ventilated, symmetric, no rales, no wheezing, no rhonchi, no stridor, good breath sounds bilaterally Heart: Regular rate, regular rhythm, no murmur, no gallops Vascular: no peripheral edema, Abdomen: Soft, positive bowel sounds, nondistended, no guarding, nontender, no rebound, no masses no hepatomegaly, no splenomegaly, no Perry's sign, no hernias. Rectal: Deferred Genital: Deferred Neurological: Normal speech, motor function intact, sensory function intact Musculoskeletal: Neck nontender, full range of motion, back nontender, full range of motion, Extremities: nontender, full range of motion Skin: Color pink, dry, no turgor, no rash, no lacerations, no abrasions, no contusions. Lymphatic: Deferred Results Laboratory and Microbiology Lab and Micro Result Laboratory Tests Test 10/12/24 03:50 White Blood Count 10.0 K/uL (4.8-10.8) Red Blood Count 4.55 MIL/uL (4.50-6.20) Hemoglobin 14.9 g/dL (14.0-18.0) Hematocrit 41.5 % (42-54) L Mean Corpuscular Volume 91.2 fL (79-99) Mean Corpuscular Hemoglobin 32.7 pg (27.0-33.0) Mean Corpuscular Hemoglobin Concent 35.9 g/dL (32.0-36.0) Red Cell Distribution Width 11.2 % (11.0-15.5) Platelet Count 215 K/uL (130-400) # Mean Platelet Volume 10.7 fL (7.5-10.5) H Immature Granulocyte % (Auto) 0.4 % (0-1) Neutrophils (%) (Auto) 66.0 % (40.0-77.0) Lymphocytes (%) (Auto) 23.9 % (21.0-51.0) Monocytes (%) (Auto) 8.5 % (3.0-13.0) Eosinophils (%) (Auto) 0.8 % (0.0-8.0) Basophils (%) (Auto) 0.4 % (0.0-5.0) Neutrophils # (Auto) 6.6 K/uL (1.8-7.7) Lymphocytes # (Auto) 2.4 K/uL (1.0-4.8) Monocytes # (Auto) 0.9 K/uL (0.1-1.0) Eosinophils # (Auto) 0.08 K/uL (0.00-0.70) Basophils # (Auto) 0.04 K/uL (0.00-0.20) Absolute Immature Granulocyte (auto 0.04 K/uL (0-1) Nucleated Red Blood Cells 0.0 % (0.0-0.19) Sodium Level 137 mmol/L (136-145) Potassium Level 3.2 mmol/L (3.5-5.1) L Chloride Level 94 mmol/L (101-111) L Carbon Dioxide Level 25 mmol/L (21-32) Blood Urea Nitrogen 13 mg/dL (7-18) Creatinine 1.1 mg/dL (0.5-1.3) Glomerular Filtration Rate Calc 91 mL/min (>90) Random Glucose 242 mg/dL (70-105) H Total Calcium 9.8 mg/dL (8.5-10.1) Total Bilirubin 1.1 mg/dL (0.2-1.0) H Direct Bilirubin 0.2 mg/dL (0.0-0.3) Aspartate Amino Transf (AST/SGOT) 29 U/L (10-37) Alanine Aminotransferase (ALT/SGPT) 23 U/L (12-78) Alkaline Phosphatase 53 U/L (50-136) Total Protein 7.8 g/dL (6.0-8.3) Albumin 4.1 g/dL (3.5-5.0) Triglycerides Level 143 mg/dL (30-200) Lipase 74 U/L (16-77) Labs Reviewed?: Yes EKG/XRAY/US/CT/MRI CT Scan Comment PATIENT: REGGIE LOPEZSERAFIN MR#: [id number] : 1990 SEX: M AGE: 34 LOCATION: [facility] ORDER 1 STATUS: [facility] ER REPORT#: [id number] SERVICE 0 REASON: diffused abd pain ORDERING PHYSICIAN: YARY CANDELARIO PROCEDURE: ABD PEL WO - CT ABDOMEN/PELVIS W/O CONTRAST CT ABDOMEN/PELVIS W/O CONTRAST HISTORY: Diffuse abdominal pain COMPARISON: 12/25/2023 TECHNIQUE: Multiple sequential axial images of the abdomen and pelvis were obtained from the dome of the diaphragm through symphysis pubis. Patient was not given contrast through intravenous route. Oral contrast was not given. FINDINGS: No pleural effusion is seen bilaterally. There is no evidence of parenchymal disease or pulmonary nodule of the visualized lower lungs. Degenerative changes of the thoracolumbar spine are present. The heart is not enlarged. Liver is enlarged measuring 17 cm. There is mesenteric fat stranding adjacent to the pancreas may be related to pancreatitis. Lipase correlation may be helpful. The liver, spleen, adrenal glands and pancreas are unremarkable. There is no evidence of hydronephrosis bilaterally. No evidence of renal stone is seen. Fecal material is seen in the colon. There are normal size retroperitoneal and mesenteric lymph nodes. No ascites is seen. No definite CT evidence of acute appendicitis is seen. Clinical correlation is recommended. A small hiatal hernia is seen. Pelvic sidewalls are symmetric bilaterally. Bladder is poorly distended. IMPRESSION: 1. There is mesenteric fat stranding adjacent to the pancreas may be related to pancreatitis. Lipase correlation may be helpful. CT was performed with one or more following dose reduction techniques: automated exposure control, adjustment of the mA and kv according to patient's size, or use of a iterative reconstruction technique. DICTATED BY: DAYAN BELTRE MD DATE: 10/12/246 ELECTRONICALLY SIGNED BY: DAYAN BELTRE MD DATE: 10/12/24 0159 [facility] Differential diagnosis: Poor p.o. intake, delayed colonic transit, opioids and other pain medication use contributing to the problem Rationale: Tests considered and ordered secondary to shared decision making incl ude: Previous outside records reviewed: Old ER visits. Risk of complication and/or morbidity or mortality of patient management: None Medications-Per medication reconciliation Need for hospitalization: Patient does not meet criteria for hospitalization. Need for emergency major/minor surgery: No There are no social concerns with this patient. Prescription drug management Prescriptions will include symptomatic care Patient's prior external medical records from other ER visits were reviewed by me as indicated. Prior testing and results from previous visits were reviewed. Prior tests were taken into account with medical decision making and resource utilization, independent historian/historians were used to obtain complete medical history. I independently interpreted the test that were performed, results were reviewed by me and considered findings on radiology if ordered. Medical management and examination interpretation discussions were had by me with other qualified healthcare professionals as indicated for the patient's care. ED Course Orders Procedure Category Date Status Time Cbc With Differential LAB 10/12/24 Complete 01:11 Basic Metabolic Panel LAB 10/12/24 Complete 01:11 Hepatic Function Panel LAB 10/12/24 Complete 01:11 Lipase LAB 10/12/24 Complete 01:11 Ct Abdomen/Pelvis W/O CT 10/12/24 Resulted Contrast 01:11 Polyethylene Glycol PHA 10/12/24 Complete 3350 (Miralax 3350 1 02:00 Lactulose 20 Gm/30 Ml PHA 10/12/24 Complete Udcup (Constulose 02:00 Triglycerides LAB 10/12/24 Complete 01:11 Morphine 2mg Syg PHA 10/12/24 Complete (Morphine 2mg Syg) 05:00 Current Medications Medications (Trade) Dose Ordered Sig/Elisa Route PRN Reason Start Time Stop Time Status Last Admin Dose Admin Lactulose (Constulose 20gm/ 30ml Udcup) 20 gm ONCE ONCE PO 10/12/24 02:00 10/12/24 02:01 DC 10/12/24 03:40 Morphine Sulfate (morPHINE 2MG SYG) 2 mg ONCE ONCE IVP 10/12/24 05:00 10/12/24 05:01 DC 10/12/24 05:01 Polyethylene Glycol (MIRalax 3350 17 GM POWD.PACK) 17 gm ONCE ONCE PO 10/12/24 02:00 10/12/24 02:01 DC 10/12/24 03:40 Vital Signs Date Time Temp Pulse Resp B/P (MAP) Pulse Ox O2 Delivery O2 Flow Rate FiO2 10/12/24 05:05 98.4 98 18 115/80 97 Room Air* 0 21 10/12/24 03:31 105 16 105/73 100 Room Air* 0 21 10/12/24 00:47 98.2 104 16 114/77 98 Room Air 0 10/12/24 00:46 98.2 104 16 114/77 98 Room Air* 0 21 Patient is signed out to me by mid-level provider this is a 34-year-old male who is a diabetic just discharged on 10/10/2024 after treatment of DKA. Patient came back to the ER stating that he has been constipated and not have any bowel movement for 7 days In view of the tenderness on the right side CT scan of the abdomen and pelvis was done which showed some fecal matter in the colon as well as some mesenteric fat stranding with a concern for pancreatitis. Discharge was delayed and patient got labs drawn which showed a BNP 7 with a potassium of 3.2 glucose 242 lipase was 74 triglycerides were 143 We will give aggressive bowel regimen Patient has only taken stool softener but no laxatives. I had a long discussion with him and partner about increasing the fluid intake fiber as well as motility agent. He has constantly complained about chronic lower back pain and the next time it was right flank pain and wanted opioid pain medications. My discussion with him revealed that he is very noncompliant Problem List Problem Lists: (1) Acute abdominal pain (2) Alcohol abuse (3) Uncontrolled diabetes mellitus (4) Drug abuse DX & DISP Disposition: Discharge Departure Impression: Primary Impression: Acute abdominal pain Additional Impressions: Alcohol abuse, Drug abuse, Uncontrolled diabetes mellitus, Constipation Condition: Stable Scripts Sennosides/Docusate Sodium (Senna-Docusate Sodium Tablet) 8.6 Mg-50 Mg Tablet 2 TAB PO BID for 5 Days, #20 TAB 0 Refills Prov: BOO NICHOLAS MD 10/12/24 Additional Instructions: Patient and the caregiver have been informed of all the diagnostic tests and the imaging conducted during the today's visit to the emergency room and has verbalized understanding of the results I have personally reviewed and inte rpreted all diagnostic exams performed here in the ER today as well as the vital signs documented by the nursing staff. The patient is now being discharged to home and should follow up with the primary care physician or the specialist as directed by the ER staff. Follow-up with primary care provider in 1 to 2 days. Take medications as directed here in the emergency room. Okay to continue home medications unless otherwise discussed during your visit in the emergency room today. Return to your nearest emergency room if symptoms worsen or if there is no improvement. Call 911 if you need immediate assistance. Take Tylenol or Motrin [id number] as needed and if no contraindications are present. Increase oral hydration. A wound culture or urine culture was ordered here in the emergency room department please follow-up with primary care provider and advise them to get repeat ports from our facility. If you had any Edwin wrap/splints that were applied here, please do not remove them until you see your primary care or specialty. Referrals: TIRSO PRINCE MD (PCP) YARY CANDELARIO Oct 12, 2024 02:03 BOO NICHOLAS MD Oct 12, 2024 04:59
--- NOTE | 2024-10-12 03:25 | NUR ---
PATIENT PLACED IN ROOM AT THIS TIME
[2024-10-12] MEDS: polyETHYLene GLYCol 3350 17 GM POWD.PACK PO ONE (03:40)
[2024-10-12] MEDS: LACTULOSE 20 GM/30 ML UDCUP PO ONE (03:40)
[2024-10-12 04:17] LABS: BASOPHILS # (AUTO) 0.04 K/uL (0.00-0.20); BASOPHILS % (AUTO) 0.4 % (0.0-5.0); EOSINOPHILS # (AUTO) 0.08 K/uL (0.00-0.70); EOSINOPHILS % (AUTO) 0.8 % (0.0-8.0); HEMATOCRIT 41.5 % (42-54); IMMATURE GRANULOCYTE ABSOLUTE 0.04 K/uL (0-1); LYMPHOCYTES # (AUTO) 2.4 K/uL (1.0-4.8); LYMPHOCYTES % (AUTO) 23.9 % (21.0-51.0); MEAN CORPUSCULAR HEMOGLOBIN 32.7 pg (27.0-33.0); MEAN CORPUSCULAR HGB CONC 35.9 g/dL (32.0-36.0); MEAN CORPUSCULAR VOLUME 91.2 fL (79-99); MONOCYTES # (AUTO) 0.9 K/uL (0.1-1.0); MONOCYTES % (AUTO) 8.5 % (3.0-13.0); NEUTROPHILS # (AUTO) 6.6 K/uL (1.8-7.7); PLATELET COUNT (AUTO) 215 K/uL (130-400); RED BLOOD CELL COUNT(AUTO) 4.55 MIL/uL (4.50-6.20); RED CELL DISTRIBUTION WIDTH 11.2 % (11.0-15.5)
[2024-10-12 04:28] LABS: CREATININE 1.1 mg/dL (0.5-1.3); POTASSIUM 3.2 mmol/L (3.5-5.1)
[2024-10-12 04:33] LABS: ALBUMIN 4.1 g/dL (3.5-5.0); BILIRUBIN,DIRECT 0.2 mg/dL (0.0-0.3); BILIRUBIN,TOTAL 1.1 mg/dL (0.2-1.0); TOTAL PROTEIN, SERUM 7.8 g/dL (6.0-8.3)
[2024-10-12] MEDS ORDERED: SENN-7 PO (04:58)
[2024-10-12] MEDS: morPHINE 2 MG SYG IVP ONE (05:01)
[2024-10-12 06:06] VITALS: BP 105/72; PULSE 98; RESP 17; TEMP 98.5; O2SAT 97
[2024-10-12] MEDS: BisaCODYL 5 MG TABLET.DR PO ONE (06:11)
[2024-10-12] MEDS: MAGNESIUM CITRATE 296 ML SOLUTION PO ONE (06:11)
== END 2024-10-12 06:17 | disposition home or self-care (01) ==
LOC: EDH 00:46
DX: E11.65 Type 2 diabetes mellitus with hyperglycemia (principal); E11.10 Type 2 diabetes mellitus with ketoacidosis without coma; R10.84 Generalized abdominal pain; F10.10 Alcohol abuse, uncomplicated; F19.10 Other psychoactive substance abuse, uncomplicated; K59.00 Constipation, unspecified; F41.9 Anxiety disorder, unspecified; I10 Essential (primary) hypertension; Z79.4 Long term (current) use of insulin; Z79.899 Other long term (current) drug therapy
CPT/HCPCS: 99285; 74176; 96374; 84478; 80076; 80048; 83690; 85025; 36415; J2270

== ENCOUNTER 2024-12-27 15:18 | Emergency (ER) | payer MEDICAID ==
[~2024-12-27] VITALS: Ht 175.3 cm; Wt 81.6 kg
[~2024-12-27 15:18] MED LIST changes: -FENO145T26 PO; +INSU100C14 SQ; -METO25TA6 PO; -NIAC250T34 PO
--- NOTE | 2024-12-27 15:41 | ERN ---
ED Note History of Present Illness Stated Complaint: SKIN PAIN 1 YR AGO AFTER FALL Chief Complaint: Other Problems Time Seen by MD: 15:24 Dictation: PATIENT IS HERE WITH COMPLAINTS OF A BURNING SENSATION TO THE LEFT LATERAL HIP PELVIC AREA THAT RUNS DOWN HIS LEG TO HIS KNEE STARTING LAST YEAR AFTER HE FELL IN APRIL 2024. HE STATES HE ALSO HIT HIS JAW IN HIS RIBS AT THIS TIME WAS SEEN AT [facility] AND THEN SEEN BY HIS DOCTOR, DR. PRINCE. HE SAID THE RIBS HAVE RECOVERED STILL HAS NO JAW PAIN AT THIS TIME. HE STATES HE HAS A BURNING SENSATION TO THE LEFT LEG THAT HE HAS HAD SINCE LAST YEAR. HE STATES HE HAS HAD THREE PRIOR DOCTOR VISITS THAT HE HAS CANCELED BECAUSE OF PAIN TO THE SAME LEG. ALSO STATES HIS BLOOD SUGAR HAS BEEN HIGH IN THE THREE AND 400S. Allergies: Coded Allergies: No Known Allergies (Unverified Allergy, Unknown, 09/20/22) Home Meds Active Scripts Insulin Lispro (Humalog) 100 Unit/Ml Cartridge, 5 UNITS SQ TIDMEALS, #1 VIAL 1 Refill Prov:KIRSTY TOLLIVER AGPCMAGDALENA 11/23/24 Insulin Glargine,Hum.rec.anlog (Lantus Solostar) 100 Unit/Ml (3 Ml) Insuln.pen, 30 UNIT SQ bedtime for 30 Days, #1 VIAL 1 Refill Prov:KIRSTY TOLLIVER AGPCNP 11/23/24 [place]-3 Fatty Acids/Fish Oil (Eql Fish Oil 1,000 mg Softgel) 300 Mg-1,000 Mg Capsule, 2000 MG PO BID for 30 Days, #30 CAP 1 Refill Prov:FANTA SPARKS MD 03/25/24 Reported Medications Lisinopril/Hydrochlorothiazide (Lisinopril-Hctz 20-12.5 mg Tab) 20 Mg-12.5 Mg Tablet, 1 EACH PO DAILY, TAB 11/24/23 Alprazolam (Alprazolam) 2 Mg Tablet, 2 MG PO TID PRN for ANXIETY/AGITATION, TAB 11/24/23 Past Medical History Past Medical History: Anxiety, Diabetes-Type I, High Cholesterol, Hypertension Additional Past Medical Hx: CHRONIC PAINS, NARCOTIC ABUSE OF [place] AND ETOH ABUSE Surgical History: None Family History: Negative Social History: ETOH, Lives with family RN Note Reviewed/Agreed w/PFSH: Yes Review of System Dictation CONSTITUTIONAL: NEGATIVE EXCEPT FOR HPI HEAD/FACE: NEGATIVE EXCEPT FOR HPI EENT: NEGATIVE EXCEPT FOR HPI RESPIRATORY: NEGATIVE EXCEPT FOR HPI GASTROINTESTINAL/ABDOMINAL: NEGATIVE EXCEPT FOR HPI GENITOURINARY: NEGATIVE EXCEPT FOR HPI MUSCULOSKELETAL: NEGATIVE EXCEPT FOR HPI INTEGUMENTARY: NEGATIVE EXCEPT FOR HPI NEUROLOGICAL/PSYCH: NEGATIVE EXCEPT FOR HPI BURNING PAIN LEFT LEG FROM HIP TO KNEE HEMATOLOGIC/LYMPHATIC: NEGATIVE EXCEPT FOR HPI ALL SYSTEMS NEGATIVE, EXCEPT NOTED ABOVE. 13 POINT REVIEW OF SYSTEMS ASSESSED AND ALL NEGATIVE EXCEPT FOR ABOVE. Initial Vital Sign VS Vital Signs Date Time Temp Pulse Resp B/P (MAP) Pulse Ox O2 Delivery O2 Flow Rate FiO2 12/27/24 15:23 98.1 88 16 122/73 100 Room Air 0 12/27/24 15:47 21 Physical Exam Dictation VITAL SIGNS REVIEWED GENERAL APPEARANCE: ALERT, ORIENTED X 3, MILD ACUTE DISTRESS, WELL DEVELOPED, NOURISHED. HEAD AND FACE: NON-TRAUMATIC. EYES: PERRL, PINK CONJUNCTIVAS, EYELID NO TRAUMA, ANTERIOR CHAMBER WITH ARCUS SENILIS. EARS: PINNAS INTACT AND NO SIGNS OF TRAUMA OR ERYTHEMA EAR CANALS CLEAR AND NO DISCHARGE TM NO ERYTHEMA NOSE: NO DISCHARGE, NO BLEEDING. OROPHARYNX: MOUTH NORMAL, TONGUE PINK, PHARYNX CLEAR,NO ERYTHEMA, TONSILS NO EXUDATES, NO ABSCESSES NOTED, MUCOUS MEMBRANE MOIST NECK: SUPPLE, NON-TENDER, NO THYROMEGALY, NO MASSES, NO JVD, NO BRUITS BREAST:DEFERRED CHEST:NO TENDERNESS, NO CREPITUS, NO PARADOXICAL MOVEMENT, NO RETRACTIONS LUNGS:CLEAR, WELL-VENTILATED, SYMMETRIC, NO RALES, NO WHEEZING, NO RHONCHI, NO STRIDOR, GOOD BREATH SOUNDS BILATERALLY HEART: REGULAR RATE, REGULAR RHYTHM, NO MURMUR, NO GALLOPS VASCULAR: NO PERIPHERAL EDEMA, ABDOMEN: SOFT, POSITIVE BOWEL SOUNDS, NONDISTENDED, NO GUARDING, NONTENDER, NO REBOUND, NO MASSES NO HEPATOMEGALY, NO SPLENOMEGALY, NO TUCKER'S SIGN, NO HERNIAS. RECTAL: DEFERRED GENITAL: DEFERRED NEUROLOGICAL: NORMAL SPEECH, MOTOR FUNCTION INTACT, SENSORY FUNCTION INTACT MUSCULOSKELETAL: NECK NONTENDER, FULL RANGE OF MOTION, BACK NONTENDER, FULL RANGE OF MOTION, EXTREMITIES: NONTENDER, FULL RANGE OF MOTION SKIN: COLOR PINK, DRY, NO TURGOR, NO RASH, NO LACERATIONS, NO ABRASIONS, NO CONTUSIONS. SKIN INTACT TO LEFT HIP AND LEG. PATIENT HAS A ANALGESIC PATCHES IN PLACE LYMPHATIC: DEFERRED Results (Laboratory/Radiology) Laboratory/Radiology Laboratory Tests Test 12/27/24 15:45 12/27/24 16:22 12/27/24 16:57 12/27/24 17:53 White Blood Count 9.6 K/uL (4.8-10.8) Red Blood Count 4.58 MIL/uL (4.50-6.20) Hemoglobin 14.8 g/dL (14.0-18.0) Hematocrit 43.0 % (42-54) Mean Corpuscular Volume 93.9 fL (79-99) Mean Corpuscular Hemoglobin 32.3 pg (27.0-33.0) Mean Corpuscular Hemoglobin Concent 34.4 g/dL (32.0-36.0) Red Cell Distribution Width 11.6 % (11.0-15.5) Platelet Count 228 K/uL (130-400) Mean Platelet Volume 10.1 fL (7.5-10.5) Immature Granulocyte % (Auto) 0.2 % (0-1) Neutrophils (%) (Auto) 58.1 % (40.0-77.0) Lymphocytes (%) (Auto) 31.7 % (21.0-51.0) Monocytes (%) (Auto) 7.8 % (3.0-13.0) Eosinophils (%) (Auto) 1.5 % (0.0-8.0) Basophils (%) (Auto) 0.7 % (0.0-5.0) Neutrophils # (Auto) 5.6 K/uL (1.8-7.7) Lymphocytes # (Auto) 3.1 K/uL (1.0-4.8) Monocytes # (Auto) 0.8 K/uL (0.1-1.0) Eosinophils # (Auto) 0.14 K/uL (0.00-0.70) Basophils # (Auto) 0.07 K/uL (0.00-0.20) Absolute Immature Granulocyte (auto 0.02 K/uL (0-1) Nucleated Red Blood Cells 0.0 % (0.0-0.19) Sodium Level 137 mmol/L (136-145) Potassium Level 4.3 mmol/L (3.5-5.1) Chloride Level 98 mmol/L (101-111) L Carbon Dioxide Level 27 mmol/L (21-32) Blood Urea Nitrogen 9 mg/dL (7-18) Creatinine 1.1 mg/dL (0.5-1.3) Glomerular Filtration Rate Calc 91 mL/min (>90) Random Glucose 371 mg/dL (70-105) H Whole Blood Ketones Quantitative 0.5 mmol/L (0.0-0.6) Total Calcium 9.4 mg/dL (8.5-10.1) Whole Blood Glucose 353 MG/DL (70-110) H 279 MG/DL (70-110) H 216 MG/DL (70-110) H Labs Reviewed?: Yes ED Course ED Course Orders Procedure Category Date Status Time Cbc With Differential LAB 12/27/24 Complete 15:37 Basic Metabolic Panel LAB 12/27/24 Complete 15:37 Ketone Blood LAB 12/27/24 Complete Quantitative 15:37 0.9%Nacl 1000ml (Ns PHA 12/27/24 Complete 1000ml) 16:00 Ketorolac PHA 12/27/24 Complete Tromethamine 30mg/Ml 16:00 Insulin Regular, PHA 12/27/24 Complete Human 3ml (Humulin R 16:30 Bedside Glucose CPOE 12/27/24 Transmitted Fingerstick 17:13 Current Medications Medications (Trade) Dose Ordered Sig/Elisa Route PRN Reason Start Time Stop Time Status Last Admin Dose Admin Insulin Human Regular (humuLIN R 100 UNIT/ML 3ML) 12 unit ONCE ONCE IV 12/27/24 16:30 12/27/24 16:31 DC 12/27/24 16:30 Ketorolac Tromethamine (toRADol) 30 mg ONCE ONCE IVP 12/27/24 16:00 12/27/24 16:01 DC 12/27/24 15:54 Sodium Chloride 1,000 ml @ 0 mls/hr ONCE ONCE IV 12/27/24 16:00 12/27/24 16:01 DC 12/27/24 15:53 Vital Signs Date Time Temp Pulse Resp B/P (MAP) Pulse Ox O2 Delivery O2 Flow Rate FiO2 12/27/24 16:42 98.2 85 16 124/75 98 Room Air* 0 21 12/27/24 15:47 98.2 88 16 122/73 98 Room Air* 0 21 12/27/24 15:23 98.1 88 16 122/73 100 Room Air 0 1800/REPEAT BLOOD SUGAR 216 AFTER MEDICATIONS AND TREATMENTS. PATIENT CONTINUES TO HAVE THE BURNING SENSATION TO THE LEFT LEG. PATIENT DIAGNOSED WITH DIABETIC NEUROPATHY AND TOLD TO SEE HIS PRIMARY CARE DOCTOR ON SUNDAY WITHOUT FAIL FOR FOLLOW UP AND MANAGEMENT. Medical Decision Making MDM MEDICAL DISCHARGE MAKING BASED ON BASIC LABS AND TREATMENT FOR HYPERGLYCEMIA AND UNCONTROLLED DIABETES. NO KETONE ELEVATION FINGERSTICK BLOOD SUGAR 216 AFTER TREATMENT PATIENT WILL BE DISCHARGED HOME WITH GABAPENTIN. FOR NEUROPATHY AND TOLD TO SEE HIS DOCTOR SUNDAY WITHOUT FAIL FOR MANAGEMENT DX & DISP Disposition: Discharge Departure Impression: Primary Impression: Uncontrolled diabetes mellitus Additional Impression: Diabetic neuropathy Condition: Stable Scripts Gabapentin (Gabapentin) 400 Mg Capsule 1 CAP PO TID for 30 Days, #90 CAP 0 Refills Prov: JANEE BARRETO CUSTOMER EXPERIENCE ASSOCIATE 12/27/24 Additional Instructions: FOLLOW-UP WITH PRIMARY CARE PROVIDER IN 1 TO 2 DAYS. TAKE MEDICATIONS DIRECTED HERE IN THE EMERGENCY ROOM. OKAY TO CONTINUE HOME MEDICATIONS UNLESS OTHERWISE DISCUSSED DURING YOUR VISIT IN THE EMERGENCY ROOM TODAY. RETURN TO YOUR NEAREST EMERGENCY ROOM IF SYMPTOMS WORSEN OR IF THERE IS NO IMPROVEMENT. CALL 911 IF YOU NEED IMMEDIATE ASSISTANCE. TAKE TYLENOL OR MOTRIN [id number] NEEDED AND IF NO CONTRAINDICATIONS ARE PRESENT. INCREASE ORAL HYDRATION. A WOUND CULTURE OR URINE CULTURE WAS ORDERED HERE IN THE EMERGENCY ROOM DEPARTMENT PLEASE FOLLOW-UP WITH PRIMARY CARE PROVIDER AND ADVISE THEM TO GET REPEAT PORTS FROM OUR FACILITY. IF YOU HAD ANY NICHOLAS WRAP/SPLINTS THAT WERE APPLIED HERE, PLEASE DO NOT REMOVE THEM UNTIL YOU SEE YOUR PRIMARY CARE OR SPECIALTY. TAKE GABAPENTIN DIRECTED. FOLLOW A DIABETIC DIET. TAKE YOUR DIABETIC MEDICATIONS DIRECTED AND SEE YOUR PRIMARY CARE DOCTOR ON SUNDAY OR SUNDAY FOR FOLLOW UP AND MANAGEMENT OF YOUR DIABETIC NEUROPATHY. Referrals: TIRSO PRINCE MD (PCP) Time of Disposition: 18:00 I have reviewed the case, and I agree with, Diagnosis and Plan JANEE BARRETO NP Dec 27, 2024 15:41
[2024-12-27] MEDS: 0.9%NACL 1000ML 1,000 ML IV ONE (15:53)
[2024-12-27] MEDS: ketOROlac 30MG VIAL (30MG/ML) IVP ONE (15:54)
[2024-12-27 15:55] LABS: BASOPHILS # (AUTO) 0.07 K/uL (0.00-0.20); BASOPHILS % (AUTO) 0.7 % (0.0-5.0); EOSINOPHILS # (AUTO) 0.14 K/uL (0.00-0.70); EOSINOPHILS % (AUTO) 1.5 % (0.0-8.0); IMMATURE GRANULOCYTE ABSOLUTE 0.02 K/uL (0-1); LYMPHOCYTES # (AUTO) 3.1 K/uL (1.0-4.8); LYMPHOCYTES % (AUTO) 31.7 % (21.0-51.0); MEAN CORPUSCULAR HEMOGLOBIN 32.3 pg (27.0-33.0); MEAN CORPUSCULAR HGB CONC 34.4 g/dL (32.0-36.0); MEAN CORPUSCULAR VOLUME 93.9 fL (79-99); MONOCYTES # (AUTO) 0.8 K/uL (0.1-1.0); MONOCYTES % (AUTO) 7.8 % (3.0-13.0); NEUTROPHILS # (AUTO) 5.6 K/uL (1.8-7.7); NEUTROPHILS % (AUTO) 58.1 % (40.0-77.0); PLATELET COUNT (AUTO) 228 K/uL (130-400); RED BLOOD CELL COUNT(AUTO) 4.58 MIL/uL (4.50-6.20); RED CELL DISTRIBUTION WIDTH 11.6 % (11.0-15.5); WHITE BLOOD COUNT (AUTO) 9.6 K/uL (4.8-10.8)
[2024-12-27 16:09] LABS: CREATININE 1.1 mg/dL (0.5-1.3); POTASSIUM 4.3 mmol/L (3.5-5.1)
[2024-12-27] MEDS: INSULIN humuLIN R 100 UNIT/ML 3ML IV ONE (16:30)
[2024-12-27] MEDS ORDERED: GABA-534 PO (18:00)
[2024-12-27 18:02] VITALS: BP 120/70; PULSE 85; RESP 16; TEMP 98.3; O2SAT 98
== END 2024-12-27 18:17 | disposition home or self-care (01) ==
LOC: EDH 15:18
DX: E10.49 Type 1 diabetes mellitus with other diabetic neurological complication (principal); E10.65 Type 1 diabetes mellitus with hyperglycemia; E78.00 Pure hypercholesterolemia, unspecified; F41.9 Anxiety disorder, unspecified; I10 Essential (primary) hypertension; Z79.4 Long term (current) use of insulin; Z79.899 Other long term (current) drug therapy
CPT/HCPCS: 99284; 96374; 96361; 96375; 80048; 85025; 82948 ×3; 82010; 36415; J1815; J1885; J7030

== ENCOUNTER 2025-01-21 19:42 | Emergency (ER) | payer MEDICAID ==
[~2025-01-21] VITALS: Ht 175.3 cm; Wt 80.7 kg
[~2025-01-21 19:42] MED LIST changes: +GABA-534 PO
[2025-01-21 20:06] LABS: BASOPHILS # (AUTO) 0.06 K/uL (0.00-0.20); BASOPHILS % (AUTO) 0.5 % (0.0-5.0); EOSINOPHILS # (AUTO) 0.02 K/uL (0.00-0.70); EOSINOPHILS % (AUTO) 0.2 % (0.0-8.0); HEMATOCRIT 42.2 % (42-54); IMMATURE GRANULOCYTE ABSOLUTE 0.05 K/uL (0-1); LYMPHOCYTES # (AUTO) 1.5 K/uL (1.0-4.8); LYMPHOCYTES % (AUTO) 13.6 % (21.0-51.0); MEAN CORPUSCULAR HEMOGLOBIN 32.3 pg (27.0-33.0); MEAN CORPUSCULAR HGB CONC 35.3 g/dL (32.0-36.0); MEAN CORPUSCULAR VOLUME 91.3 fL (79-99); MONOCYTES # (AUTO) 0.7 K/uL (0.1-1.0); MONOCYTES % (AUTO) 6.5 % (3.0-13.0); NEUTROPHILS # (AUTO) 8.8 K/uL (1.8-7.7); NEUTROPHILS % (AUTO) 78.8 % (40.0-77.0); PLATELET COUNT (AUTO) 240 K/uL (130-400); RED BLOOD CELL COUNT(AUTO) 4.62 MIL/uL (4.50-6.20); RED CELL DISTRIBUTION WIDTH 11.7 % (11.0-15.5); WHITE BLOOD COUNT (AUTO) 11.2 K/uL (4.8-10.8)
--- NOTE | 2025-01-21 20:10 | ERN ---
General Chief Complaint: Abdominal Pain Stated Complaint: ABD PAIN Time Seen by MD: 19:55 History of Present Illness Initial Comments Mr. Yen is a 34-year-old male significant past medical history of type 1 diabetes, hypertension, anxiety and reported prior episodes of pancreatitis presenting with bilateral lower back pain and hip pain, and nausea. He reports symptoms began earlier today at around 1:00 p.m. after waking a blade. He administers 8 units of Humalog postprandially but did not eat which she believes may be contributing to his nausea. He also endorses intermittent shortness of breath which he attributes to anxiety said he really did leave the house due to severe anxiety. The patient was described as aching and radiates across both hips and lower back. He denies chest pain, headache, double vision blurry vision. He administers Humalog 8 units 3 times a day post meal and Lantus 20 units nightly. He reports take 0.5 mg of Xanax from a 2 mg tablet as needed for anxiety. He reports no fever or urinary symptoms. Allergies: Coded Allergies: No Known Allergies (Unverified Allergy, Unknown, 09/20/22) Home Meds Active Scripts Gabapentin (Gabapentin) 400 Mg Capsule, 1 CAP PO TID for 30 Days, #90 CAP 0 Refills Prov:JANEE BARRETO NP 12/27/24 Insulin Lispro (Humalog) 100 Unit/Ml Cartridge, 5 UNITS SQ TIDMEALS, #1 VIAL 1 Refill Prov:KIRSTY TOLLIVER AGPCNP 11/23/24 Insulin Glargine,Hum.rec.anlog (Lantus Solostar) 100 Unit/Ml (3 Ml) Insuln.pen, 30 UNIT SQ bedtime for 30 Days, #1 VIAL 1 Refill Prov:KIRSTY TOLLIVER AGPCNP 11/23/24 [place]-3 Fatty Acids/Fish Oil (Eql Fish Oil 1,000 mg Softgel) 300 Mg-1,000 Mg Capsule, 2000 MG PO BID for 30 Days, #30 CAP 1 Refill Prov:FANTA SPARKS MD 03/25/24 Reported Medications Lisinopril/Hydrochlorothiazide (Lisinopril-Hctz 20-12.5 mg Tab) 20 Mg-12.5 Mg Tablet, 1 EACH PO DAILY, TAB 11/24/23 Alprazolam (Alprazolam) 2 Mg Tablet, 2 MG PO TID PRN for ANXIETY/AGITATION, TAB 11/24/23 Past Medical History Past Medical History: Diabetes-Type II, Hypertension Medical History Other: CHRONIC PAINS, NARCOTIC ABUSE OF [place] AND ETOH ABUS E Past Surgical History: Other Surgical History Other: OTHER Family History Family History: Negative Social History Social History: ETOH, Lives with family ROS Dictation Constitutional: Negative for fever,chills, and weight loss Eyes: Negative for injury, pain,redness, and discharge ENT: Negative for injury,pain or swelling Cardiovascular: Negative for chest pain, palpitations, and edema Respiratory: Reports intermittent shortness of breath Abdomen/GI: N reports nausea, no vomiting or diarrhea Back: Negative for injury and pain : Negative for injury, bleeding and discharge MS/Extremity: Negative for injury and deformity Skin: Negative for rash, and discoloration Neuro: Negative for headache, weakness, numbness, tingling, and seizure Psych: Severe anxiety Physical Exam Physical Exam Dictation General: Alert and anxious Head/Face: Normocephalic, atraumatic Eyes: PERRL, EOMI, vision at baseline ENT: oral cavity clear, TMs clear, no signs of infection Neck: Trachea midline, supple, no nuchal rigidity Cardiovascular: RRR, normal S1/S2, No MRGs, no JVD Respiratory: CTAB, no respiratory distress, No rales or wheezes Abdomen: Mild diffuse tenderness no rebound or guarding, bilateral lower paraspinal and hip region tenderness Skin: Warm, dry, normal turgor, no rash MS/Extremity: Pulses equal, no cyanosis, neurovascular intact, FROM Neuro: No focal deficits Psych: Anxious l Results Laboratory and Microbiology Lab and Micro Result Laboratory Tests Test 01/21/25 19:59 01/21/25 20:45 White Blood Count 11.2 K/uL (4.8-10.8) H Red Blood Count 4.62 MIL/uL (4.50-6.20) Hemoglobin 14.9 g/dL (14.0-18.0) Hematocrit 42.2 % (42-54) Mean Corpuscular Volume 91.3 fL (79-99) Mean Corpuscular Hemoglobin 32.3 pg (27.0-33.0) Mean Corpuscular Hemoglobin Concent 35.3 g/dL (32.0-36.0) Red Cell Distribution Width 11.7 % (11.0-15.5) Platelet Count 240 K/uL (130-400) Mean Platelet Volume 10.2 fL (7.5-10.5) Immature Granulocyte % (Auto) 0.4 % (0-1) Neutrophils (%) (Auto) 78.8 % (40.0-77.0) H Lymphocytes (%) (Auto) 13.6 % (21.0-51.0) L Monocytes (%) (Auto) 6.5 % (3.0-13.0) Eosinophils (%) (Auto) 0.2 % (0.0-8.0) Basophils (%) (Auto) 0.5 % (0.0-5.0) Neutrophils # (Auto) 8.8 K/uL (1.8-7.7) H Lymphocytes # (Auto) 1.5 K/uL (1.0-4.8) Monocytes # (Auto) 0.7 K/uL (0.1-1.0) Eosinophils # (Auto) 0.02 K/uL (0.00-0.70) Basophils # (Auto) 0.06 K/uL (0.00-0.20) Absolute Immature Granulocyte (auto 0.05 K/uL (0-1) Nucleated Red Blood Cells 0.0 % (0.0-0.19) Sodium Level 139 mmol/L (136-145) Potassium Level 4.0 mmol/L (3.5-5.1) Chloride Level 99 mmol/L (101-111) L Carbon Dioxide Level 24 mmol/L (21-32) Blood Urea Nitrogen 8 mg/dL (7-18) Creatinine 0.9 mg/dL (0.5-1.3) Glomerular Filtration Rate Calc 116 mL/min (>90) Random Glucose 306 mg/dL (70-105) H Whole Blood Ketones Quantitative 3.2 mmol/L (0.0-0.6) H Total Calcium 9.4 mg/dL (8.5-10.1) Total Bilirubin 1.2 mg/dL (0.2-1.0) H Direct Bilirubin 0.3 mg/dL (0.0-0.3) Aspartate Amino Transf (AST/SGOT) 32 U/L (10-37) Alanine Aminotransferase (ALT/SGPT) 29 U/L (12-78) Alkaline Phosphatase 75 U/L (50-136) Total Protein 8.1 g/dL (6.0-8.3) Albumin 4.6 g/dL (3.5-5.0) Triglycerides Level 159 mg/dL (30-200) Lipase 9 U/L (16-77) L Lactic Acid Level 2.1 mmol/L (0.8-2.5) MDM Patient was had a unremarkable workup in the emergency department. If CT abdomen and pelvis shows no acute finding. Triglycerides are within good limits given his history. Patient has no evidence of acute cholecystitis/pancreatitis or any other abnormality. Patient was much improved and is tolerating p.o. MDM: Differential diagnosis: Abdominal pain, gastroparesis, lumbar sacral pain Rationale: Tests considered and ordered secondary to shared decision making include: Previous outside records reviewed: Old ER visits. Risk of complication and/or morbidity or mortality of patient management: None Medications-Per medication reconciliation Need for hospitalization: Patient does not meet criteria for hospitalization. Need for emergency major/minor surgery: No There are no social concerns with this patient. Prescription drug management Prescriptions will include symptomatic care Patient's prior external medical records from other ER visits were reviewed by me as indicated. Prior testing and results from previous visits were reviewed. Prior tests were taken into account with medical decision making and resource utilization, independent historian/historians were used to obtain complete medical history. I independently interpreted the test that were performed, results were reviewed by me and considered findings on radiology if ordered. Medical management and examination interpretation discussions were had by [facility] other qualified healthcare professionals as indicated for the patient's care. ED Course Orders Procedure Category Date Status Time Cbc With Differential LAB 01/21/25 Complete 19:48 Basic Metabolic Panel LAB 01/21/25 Complete 19:48 Hepatic Function Panel LAB 01/21/25 Complete 19:48 Ketone Blood LAB 01/21/25 Complete Quantitative 19:48 Urinalysis Profile LAB 01/21/25 Logged 19:48 Triglycerides LAB 01/21/25 Complete 19:48 Lipase LAB 01/21/25 Complete 19:55 Lactic Acid LAB 01/21/25 Complete 20:05 Ondansetron 4mg Inj PHA 01/21/25 Complete (Zofran 4mg Inj) 20:30 Ct Abdomen/Pelvis CT 01/21/25 Resulted W/Contrast 20:05 Iohexol (Omnipaque) PHA 01/21/25 Complete 20:35 Morphine 5mg Vial PHA 01/21/25 Complete (Morphine 5mg Vial) 21:30 Insulin Regular, PHA 01/21/25 Complete Human 3ml (Humulin R 21:30 Morphine 4mg Syg PHA 01/21/25 In Process (Morphine 4mg Syg) 21:30 Current Medications Medications (Trade) Dose Ordered Sig/Elisa Route PRN Reason Start Time Stop Time Status Last Admin Dose Admin Insulin Human Regular (humuLIN R 100 UNIT/ML 3ML) 8 unit ONCE ONCE SQ 01/21/25 21:30 01/21/25 21:31 DC 01/21/25 22:02 Iohexol (Omnipaque) 35,000 mg STK-MED ONCE IV 01/21/25 20:35 01/21/25 20:35 DC Morphine Sulfate (morPHINE 4MG SYG) 4 mg ONCE PRN IVP SEVERE PAIN (7-10) 01/21/25 21:30 01/28/25 21:29 01/21/25 22:00 Morphine Sulfate (morPHINE 5MG VIAL) 4 mg ONCE PRN IV SEVERE PAIN (7-10) 01/21/25 21:30 01/21/25 21:24 DC Ondansetron HCl (zoFRAN 4MG INJ) 4 mg ONCE ONCE IVP 01/21/25 20:30 01/21/25 20:31 DC 01/21/25 20:52 Vital Signs Date Time Temp Pulse Resp B/P (MAP) Pulse Ox O2 Delivery O2 Flow Rate FiO2 01/21/25 19:52 98.8 118 18 134/78 99 Room Air DX & DISP Disposition: Discharge Departure Impression: Primary Impression: Abdominal pain Condition: Stable Additional Instructions: Please follow up with your primary care physician in the next 2-6 days. Consider bland diet. Take small meals. Continue to take your cholesterol/triglycerides medicine. Referrals: TIRSO PRINCE MD (PCP) CHERRY SANCHEZ MD Jan 21, 2025 20:10
[2025-01-21 20:19] LABS: CREATININE 0.9 mg/dL (0.5-1.3)
[2025-01-21 20:24] LABS: ALBUMIN 4.6 g/dL (3.5-5.0); BILIRUBIN,DIRECT 0.3 mg/dL (0.0-0.3); BILIRUBIN,TOTAL 1.2 mg/dL (0.2-1.0); TOTAL PROTEIN, SERUM 8.1 g/dL (6.0-8.3)
[2025-01-21] MEDS ORDERED: IOHEXOL 350 MG/ML 100ML INFUS..BTL IV ONE (20:35)
[2025-01-21] MEDS: ondanSETRON 4MG INJ IVP ONE (20:52)
--- NOTE | 2025-01-21 21:09 | HMCIMG ---
CT ABDOMEN/PELVIS W/CONTRAST HISTORY: Acute pancreatitis COMPARISON: None TECHNIQUE: Multiple sequential axial images of the abdomen and pelvis were obtained from the dome of the diaphragm through symphysis pubis. Patient was not given contrast through intravenous route. Oral contrast was not given. FINDINGS: No pleural effusion is seen bilaterally. There is no evidence of parenchymal disease or pulmonary nodule of the visualized lower lungs. Degenerative changes of the thoracolumbar spine are present. The heart is not enlarged. The liver is enlarged measuring 17 cm. The liver, spleen, adrenal glands and pancreas are unremarkable. There is no evidence of hydronephrosis bilaterally. No evidence of renal stone is seen. Fecal material is seen in the colon. There are normal size retroperitoneal and mesenteric lymph nodes. No ascites is seen. No CT evidence of acute appendicitis is seen. Pelvic sidewalls are symmetric bilaterally. Bladder is well distended without wall thickening. IMPRESSION: 1. No acute findings. CT was performed with one or more following dose reduction techniques: automated exposure control, adjustment of the mA and kv according to patient's size, or use of a iterative reconstruction technique.
[2025-01-21] MEDS: morPHINE 4 MG SYG IVP PRN (22:00)
[2025-01-21] MEDS: INSULIN humuLIN R 100 UNIT/ML 3ML SQ ONE (22:02)
[2025-01-21 23:40] VITALS: BP 132/87; PULSE 98; RESP 17; TEMP 98.5; O2SAT 100
== END 2025-01-21 23:58 | disposition home or self-care (01) ==
LOC: EDH 19:42
DX: R10.31 Right lower quadrant pain (principal); R10.32 Left lower quadrant pain; R10.84 Generalized abdominal pain; E10.9 Type 1 diabetes mellitus without complications; F41.9 Anxiety disorder, unspecified; I10 Essential (primary) hypertension; Z79.4 Long term (current) use of insulin; Z79.899 Other long term (current) drug therapy; Z87.19 Personal history of other diseases of the digestive system
CPT/HCPCS: 99285; 74177; 96374; 96375; 84478; 80076; 80048; 83690; 85025; 83605; 82010; 36415; 96372; J1815; J2405; J2270; Q9967

== ENCOUNTER 2025-07-10 09:02 | Emergency (ER) | payer MEDICAID ==
[~2025-07-10] VITALS: Ht 175.3 cm; Wt 79.4 kg
[2025-07-10 09:47] LABS: IMMATURE GRANULOCYTE ABSOLUTE 0.01 K/uL (0-1); NUCLEATED RED BLOOD CELLS 0.0 % (0.0-0.19); PLATELET COUNT (AUTO) 231 K/uL (130-400); RED BLOOD CELL COUNT(AUTO) 4.30 MIL/uL (4.50-6.20); RED CELL DISTRIBUTION WIDTH 11.5 % (11.0-15.5); WHITE BLOOD COUNT (AUTO) 8.7 K/uL (4.8-10.8)
--- NOTE | 2025-07-10 09:50 | NUR ---
IN CT AT THIS TIME
[2025-07-10 09:53] LABS: CREATININE 0.8 mg/dL (0.5-1.3); GLOMERULAR FILTR. RATE CALC 120.0 mL/min (>90); GLUCOSE,RANDOM 191.0 mg/dL (70-105); SODIUM SERUM 138.0 mmol/L (136-145); UREA NITROGEN, BLOOD 11.0 mg/dL (7-18)
[2025-07-10 09:58] LABS: ASPARTATE AMINOTRANSFERASE 30.0 U/L (10-37); TOTAL PROTEIN, SERUM 7.5 g/dL (6.0-8.3)
[2025-07-10] MEDS: 0.9%NACL 1000ML 1,000 ML IV ONE (10:32)
--- NOTE | 2025-07-10 10:32 | ERN ---
ED Note History of Present Illness Stated Complaint: LLQ DISCOMFORT X 2 HRS WELDER OXYHYDROGEN Chief Complaint: Abdominal Pain Time Seen by MD: 09:05 Dictation: 35-year-old male presenting to the emergency department with left lower quadrant pain over the past few hours nausea vomiting no bleeding, patient denies any diarrhea. No previous surgeries has a history of hypertension and diabetes Allergies: Coded Allergies: No Known Allergies (Unverified Allergy, Unknown, 09/20/22) Home Meds Active Scripts Gabapentin (Gabapentin) 400 Mg Capsule, 1 CAP PO TID for 30 Days, #90 CAP 0 Refills Prov:JANEE BARRETO PIN INSERTER 12/27/24 Insulin Lispro (Humalog) 100 Unit/Ml Cartridge, 5 UNITS SQ TIDMEALS, #1 VIAL 1 Refill Prov:KIRSTY TOLLIVER AGACNP 11/23/24 Insulin Glargine,Hum.rec.anlog (Lantus Solostar) 100 Unit/Ml (3 Ml) Insuln.pen, 30 UNIT SQ bedtime for 30 Days, #1 VIAL 1 Refill Prov:KIRSTY TOLLIVER AGACNP 11/23/24 [place]-3 Fatty Acids/Fish Oil (Eql Fish Oil 1,000 mg Softgel) 300 Mg-1,000 Mg Capsule, 2000 MG PO BID for 30 Days, #30 CAP 1 Refill Prov:FANTA SPARKS MD 03/25/24 Reported Medications Lisinopril/Hydrochlorothiazide (Lisinopril-Hctz 20-12.5 mg Tab) 20 Mg-12.5 Mg Tablet, 1 EACH PO DAILY, TAB 11/24/23 Alprazolam (Alprazolam) 2 Mg Tablet, 2 MG PO TID PRN for ANXIETY/AGITATION, TAB 11/24/23 Past Medical History Past Medical History: Anxiety, Diabetes-Type II, Hypertension, Renal Disese Additional Past Medical Hx: CHRONIC PAINS, NARCOTIC ABUSE OF [place] AND ETOH ABUSE, PANCREATITIS Surgical History: Other Surgical History Other: OTHER Family History: Negative Social History: ETOH, Lives with family Review of System Dictation Constitutional: Negative for fever,chills, and weight loss Eyes: Negative for injury, pain,redness, and discharge ENT: Negative for injury,pain or swelling Cardiovascular: Negative for chest pain, palpitations, and edema Respiratory: Negative for shortness of breath, cough, and wheezing, Abdomen/GI: Per HPI : Negative for injury, bleeding and discharge MS/Extremity: Negative for injury and deformity Skin: Negative for rash, and discoloration Neuro: Negative for headache, weakness, numbness, tingling, and seizure Psych: Negative for suicide ideation, homicidal ideation, and hallucinations Initial Vital Sign VS Vital Signs Date Time Temp Pulse Resp B/P (MAP) Pulse Ox O2 Delivery O2 Flow Rate FiO2 07/10/25 09:04 98.8 80 18 150/103 100 Room Air 0 07/10/25 09:22 21 Physical Exam Dictation General: awake, alert, NAD Head/Face: Normocephalic, atraumatic Eyes: PERRL, EOMI, vision at baseline ENT: oral cavity clear, TMs clear, no signs of infection Neck: Trachea midline, supple, no nuchal rigidity Cardiovascular: RRR, normal S1/S2, No MRGs, no JVD Respiratory: CTAB, no respiratory distress, No rales or wheezes Abdomen: Soft, LLQ TTP, non-distended, normal bowel sounds, no guarding or rebound. Skin: Warm, dry, normal turgor, no rash MS/Extremity: Pulses equal, no cyanosis, neurovascular intact, FROM Neuro: COAx4, GCS 15, strength 5/5, CN 2-12 intact, normal cerebellar exam, normal gait, Psych: Normal behavior, mood, and affect normal Results (Laboratory/Radiology) Laboratory/Radiology Laboratory Tests Test 07/10/25 09:20 07/10/25 10:20 White Blood Count 8.7 K/uL (4.8-10.8) Red Blood Count 4.30 MIL/uL (4.50-6.20) L Hemoglobin 13.8 g/dL (14.0-18.0) L Hematocrit 39.3 % (42-54) L Mean Corpuscular Volume 91.4 fL (79-99) Mean Corpuscular Hemoglobin 32.1 pg (27.0-33.0) Mean Corpuscular Hemoglobin Concent 35.1 g/dL (32.0-36.0) Red Cell Distribution Width 11.5 % (11.0-15.5) Platelet Count 231 K/uL (130-400) Mean Platelet Volume 10.1 fL (7.5-10.5) Immature Granulocyte % (Auto) 0.1 % (0-1) Neutrophils (%) (Auto) 48.8 % (40.0-77.0) Lymphocytes (%) (Auto) 41.7 % (21.0-51.0) Monocytes (%) (Auto) 6.9 % (3.0-13.0) Eosinophils (%) (Auto) 2.0 % (0.0-8.0) Basophils (%) (Auto) 0.5 % (0.0-5.0) Neutrophils # (Auto) 4.2 K/uL (1.8-7.7) Lymphocytes # (Auto) 3.6 K/uL (1.0-4.8) Monocytes # (Auto) 0.6 K/uL (0.1-1.0) Eosinophils # (Auto) 0.17 K/uL (0.00-0.70) Basophils # (Auto) 0.04 K/uL (0.00-0.20) Absolute Immature Granulocyte (auto 0.01 K/uL (0-1) Nucleated Red Blood Cells 0.0 % (0.0-0.19) Sodium Level 138 mmol/L (136-145) Potassium Level 3.4 mmol/L (3.5-5.1) L Chloride Level 97 mmol/L (101-111) L Carbon Dioxide Level 28 mmol/L (21-32) Blood Urea Nitrogen 11 mg/dL (7-18) Creatinine 0.8 mg/dL (0.5-1.3) Glomerular Filtration Rate Calc 120 mL/min (>90) Random Glucose 191 mg/dL (70-105) H Total Calcium 9.3 mg/dL (8.5-10.1) Total Bilirubin 1.4 mg/dL (0.2-1.0) H Aspartate Amino Transf (AST/SGOT) 30 U/L (10-37) Alanine Aminotransferase (ALT/SGPT) 37 U/L (12-78) Alkaline Phosphatase 65 U/L (50-136) Total Protein 7.5 g/dL (6.0-8.3) Albumin 4.0 g/dL (3.5-5.0) Lipase 9 U/L (16-77) L Urine Color YELLOW (YELLOW) Urine Appearance CLOUDY (CLEAR) H Urine pH 8.0 (5.0-8.0) Urine Specific [place] 1.020 (1.001-1.031) Urine Protein NEGATIVE mg/dL (NEGATIVE) Urine Glucose (UA) 50 mg/dL (NEGATIVE) H Urine Ketones NEGATIVE mg/dL (NEGATIVE) Urine Occult Blood NEGATIVE (NEGATIVE) Urine Nitrate NEGATIVE (NEGATIVE) Urine Bilirubin NEGATIVE mg/dL (NEGATIVE) Urine Urobilinogen 0.2 mg/dL (0.2-1.0) Urine Leukocyte Esterase NEGATIVE Ojrge/uL Urine RBC 0-1 /HPF (0-1) Urine WBC 2-5 /HPF (0-1) H Urine Squamous Epithelial Cells RARE /HPF (0-2) Urine Amorphous Crystals (Auto) RARE /LPF (None Seen) Urine Bacteria None /HPF (None Seen) Urine Opiates Screen NEGATIVE (NEGATIVE) Urine Barbiturates Screen NEGATIVE (NEGATIVE) Urine Phencyclidine Screen NEGATIVE (NEGATIVE) Urine Amphetamines Screen NEGATIVE (NEGATIVE) Urine Benzodiazepines Screen POSITIVE (NEGATIVE) H Urine Cocaine Screen NEGATIVE (NEGATIVE) Urine Marijuana (THC) Screen POSITIVE (NEGATIVE) H Labs Reviewed?: Yes ED Course ED Course Orders Procedure Category Date Status Time Cbc With Differential LAB 07/10/25 Complete 09:28 Comprehensive LAB 07/10/25 Complete Metabolic Panel 09:28 Lipase LAB 07/10/25 Complete 09:28 Urinalysis Profile LAB 07/10/25 Complete 09:28 Iv Insertion CPOE 07/10/25 Transmitted 09:31 Ondansetron 4mg Inj PHA 07/10/25 Complete (Zofran 4mg Inj) 10:00 0.9%Nacl 1000ml (Ns PHA 07/10/25 Complete 1000ml) 10:00 Drug Screen Urine LAB 07/10/25 Complete 09:43 Ketorolac PHA 07/10/25 Complete Tromethamine 15mg/Ml 09:43 Ct Abd/Pel Wo Con CT 07/10/25 Resulted Renal/Appy 09:43 Current Medications Medications (Trade) Dose Ordered Sig/Elisa Route PRN Reason Start Time Stop Time Status Last Admin Dose Admin Ketorolac Tromethamine (toRADol) 15 mg ONCE STAT IV 07/10/25 09:43 07/10/25 09:47 DC 07/10/25 10:33 Ondansetron HCl (zoFRAN 4MG INJ) 4 mg ONCE ONCE IVP 07/10/25 10:00 07/10/25 10:01 DC 07/10/25 10:32 Sodium Chloride 1,000 ml @ 0 mls/hr ONCE ONCE IV 07/10/25 10:00 07/10/25 10:01 DC 07/10/25 10:32 Vital Signs Date Time Temp Pulse Resp B/P (MAP) Pulse Ox O2 Delivery O2 Flow Rate FiO2 07/10/25 10:00 98.8 76 16 132/80 97 Room Air* 0 21 07/10/25 09:22 98.8 78 14 127/91 100 Room Air* 0 21 07/10/25 09:04 98.8 80 18 150/103 100 Room Air 0 Medical Decision Making MDM MDM: Differential diagnosis: Rationale: Tests considered and ordered secondary to shared decision making include: Previous outside records reviewed: Old ER visits. Risk of complication and/or morbidity or mortality of patient management: None Medications-Per medication reconciliation Need for hospitalization: Patient does not meet criteria for hospitalization. Need for emergency major/minor surgery: No There are no social concerns with this patient. Prescription drug management Prescriptions will include symptomatic care Patient's prior external medical records from other ER visits were reviewed by me as indicated. Prior testing and results from previous visits were reviewed. Prior tests were taken into account with medical decision making and resource utilization, independent historian/historians were used to obtain complete medical history. I independently interpreted the test that were performed, results were reviewed by me and considered findings on radiology if ordered. Medical management and examination interpretation discussions were had by me with other qualified healthcare professionals as indicated for the patient's care. 35-year-old male with abdominal pain stable exam negative workup labs and CT scan were stable, stable for discharge prescriptions given. DX & DISP Disposition: Discharge Departure Impression: Primary Impression: Acute abdominal pain Condition: Stable Scripts Ondansetron (Ondansetron Odt) 4 Mg Tab.rapdis 1 TAB PO BID PRN for nausea/vomiting for 5 Days, #10 TAB 0 Refills Prov: EUNICE ESTES MD 07/10/25 Dicyclomine HCl (Bentyl) 20 Mg Tab 1 TAB PO BID for irritable bowel symptoms for 10 Days, #20 TAB 0 Refills Prov: EUNICE ESTES MD 07/10/25 Referrals: TIRSO PRINCE MD (PCP) EUNICE ESTES MD Jul 10, 2025 10:32
[2025-07-10 10:42] LABS: APPEARANCE,URINE CLOUDY (CLEAR); GLUCOSE, URINE (UA) 50 mg/dL (NEGATIVE); LEUKOCYTE ESTERASE ,URINE NEGATIVE Leu/uL (NEGATIVE); NITRATE,URINE NEGATIVE (NEGATIVE); OCCULT BLOOD,URINE NEGATIVE (NEGATIVE)
[2025-07-10 10:45] LABS: ADD UA MICROSCOPIC YES
[2025-07-10 10:49] LABS: AMPHET/METH SCREEN,URINE NEGATIVE (NEGATIVE); BARBITURATE SCREEN, URINE NEGATIVE (NEGATIVE); CANNABINOID SCREEN,URINE POSITIVE (NEGATIVE); COCAINE SCREEN,URINE NEGATIVE (NEGATIVE)
[2025-07-10 11:16] LABS: SQUAMOUS EPITHELIAL CELL,UR RARE /HPF (0-2)
--- NOTE | 2025-07-10 12:41 | HMCIMG ---
CT ABD/PEL WO CON RENAL/APPY REASON: LLQ pain COMPARISON: None. FINDINGS: Lung bases are clear. There are no focal liver lesions. There are normal-appearing kidneys.. Spleen and pancreas appear unremarkable. The gallbladder appears normal as well. Bowel loops appear unremarkable. This includes normal appearance of the appendix there are occasional scattered diverticulosis in descending and sigmoid colon with no associated diverticulitis. There is no evidence of free fluid or intraperitoneal air. There are no focal fluid collections. The iliac vessels demonstrate calcified plaque suggesting of atherosclerotic changes. The retroperitoneum appear normal as do pelvic soft tissue structures. The anterior abdominal wall is intact. Osseous structures appear unremarkable. The prostate and seminal vesicle appears to be normal.. IMPRESSION: 1. No acute process in the CT of abdomen and pelvis without intravenous contrast. CT was performed with one or more following dose reduction techniques: automated exposure control, adjustment of the mA and kv according to patient's size, or use of a iterative reconstruction technique.
[2025-07-10] MEDS ORDERED: ONDA-243 PO (13:20)
[2025-07-10] MEDS ORDERED: DICY20TA2 PO (13:20)
[2025-07-10 14:05] VITALS: BP 127/80; PULSE 72; RESP 16; TEMP 98.8; O2SAT 100
== END 2025-07-10 14:15 | disposition home or self-care (01) ==
LOC: EDH 09:02
DX: R10.32 Left lower quadrant pain (principal); R11.2 Nausea with vomiting, unspecified; F41.9 Anxiety disorder, unspecified; E11.9 Type 2 diabetes mellitus without complications; I10 Essential (primary) hypertension; F10.90 Alcohol use, unspecified, uncomplicated; Z79.899 Other long term (current) drug therapy; Z79.4 Long term (current) use of insulin
CPT/HCPCS: 99285; 74176; 96374; 96375; 80053; 80305; 83690; 85025; 36415; 81001; J1885; J7030; J2405